=== PATIENT | female | born 1995 | race Caucasian/White ===

== ENCOUNTER 2018-01-16 20:58 | Emergency (ER) | payer SELFPAY ==
[2018-01-16 21:04] VITALS: BP 123/78; PULSE 85; RESP 16; TEMP 36.8; O2SAT 99
--- NOTE | 2018-01-16 21:24 | DI.RAD_ITS ---
SYMPTOMS/DIAGNOSIS: CHEST PAIN PA AND LATERAL CHEST: Comparison is made with December,. The cardiac and mediastinal contours have a normal appearance. The lungs are well inflated and clear. No infiltrate , effusion or pneumothorax is seen. IMPRESSION: Negative chest x-ray.
--- NOTE | 2018-01-16 21:29 | W.ED.GENAD ---
Discharge Plan Disposition Patient Disposition: HOME Condition: Fair Discharge Details Chief Complaint: Chest/Rib Clinical Impression: Chest pain, Chest wall pain Primary Care Provider: Tiffany Peña ED Provider: Elda Reed Home Meds and New Rx's Prescriptions: New ibuprofen 600 mg tablet 600 mg PO QID PRN (Reason: pain) Qty: 20 RF: 0 Continue desogestrel-ethinyl estradiol 1 EACH tablet 1 tab PO DAILY Qty: 28 RF: 2 Discharge Instructions Instructions: Chest Pain (ED), Chest Wall Pain (ED) Additional Instructions: Encourage hydration. Tylenol and/or Ibuprofen as needed for discomfort. Encourage deep breathing. Rest area, ice or heat to help with discomfort. If you develop fevers/chills, increased pain, shortness of breath, difficulty breathing or other new/worsening symptoms please seek care urgently once again. economic development coordinator will contact you with primary care provider. however, if you do not hear form them in the next [address] Watters's office to schedule follow up. Referrals: Tiffany Peña [Primary Care Provider] - Medical Decision Making Patient is a 22-year-old female, accompanied by her sister, with chief complaint of left superior chest wall discomfort. She reports that chest pain began yesterday. States she was changing her clothes and the pain initially began. States that time the pain is more centrally located in her chest. However, throughout the day the pain has migrated superiorly. States the pain is been intermittent it does not seem to be exacerbated by any particular movement or activity. However, on exam she does endorse increased pain with inspiration. Pain was elicited with AP compression of the chest. No recent travel. Patient is on control. Patient did describe how she takes her control and says that she takes that intermittently and not as directed. I did review with her the appropriate way in which to do this. Patient is a non-smoker. No lower extremity edema, no calf tenderness. Endorses shortness of breath when pain is present. Denies any recent trauma. Does state that she is been playing with her young nephew has been horsing around Patient's vital signs are within normal limits. No hypoxia or tachycardia. Considered cardiac causes, versus pulmonary or musculoskeletal. Patient is on estrogen containing OCP. History and symtpoms, as well as current vital signs do not suggest PE. As pain is not exertional and seems quite superior along the anterior chest wall, I feel this is less likely to be cardiac. Physical exam significant for chest wall pain with AP chest wall compression. Lungs are clear in all ferguson, no murmurs, rubs, gallops. No edema in LE, negative Homans. EKG reviewed by Dr. Mclean. NSR with rate of 84. Short [place], no delta waves. He advised no acute findings, no findings to suggest ischemic changes. Chest XR reivewed by radiologist. Lungs are unremarkable, no consolidation. Pleaural space is unremarkable, no evidence of pneumothorax. Heart size within normal limits. No evidence of acute fracture. Overall impression: no acute findings. Laboratory evaluation without significant abnormality. D-dimer WNL as is troponin. As the discomfort began yesterday, I do not feel that repeat troponin is needed at this time. Advised that this discomfort is likely associated with musculoskeletal pain. We discussed treatment, she will be given Ibuprofen and Tylenol as well as Lidoderm patch. She was given strict return precautions. She lives locally and is able to return with new/worsening symptoms. She reports she does not have a PCP, will ask our rn transitional care to help facilitate follow up, she has seen . pediatrics historically. I did advise that if she does not hear from rn transitional care she could contact leader assembler. All of her questions and concerns were addressed, she is in agreement with this plan. HPI General Mode of arrival: ambulatory. Date/Time Provider Initiated Documentation: 01/16/18 21:02. Limitations to Documentation: no limitations. Information obtained by: patient and family. History of Present Illness 22 year old F presents to the emergency department with the chief complaint of chest pain, described as moderate, Quality is described as aching, and is localized to the chest. Patient reports no radiation. Patient started experiencing this day(s) (1) and it has been intermittent. No relieving factors improve symptom(s), No exacerbating factors reported . Patient notes chest pain and shortness of breath; denies cough, fever/chills, headaches, nausea/vomiting, rash and weakness. Patient did receive the following treatments prior to arrival, none Related Data Home Medications Medication Instructions Recorded Confirmed desogestrel-ethinyl estradiol 1 tab PO DAILY #28 tab 12/24/15 01/16/18 ibuprofen 600 mg PO QID PRN #20 tab 01/16/18 Previous Rx's Medication Instructions Recorded ibuprofen 600 mg PO QID PRN #20 tab 01/16/18 Allergies Allergy/AdvReac Type Severity Reaction Status Date / Time No Known Allergies Allergy Unverified 04/19/17 08:14 General Stated Complaint: Chest/Rib JUDITH: 3 Review of Systems Constitutional Reports as per HPI, Denies chills, Denies fever(s), Denies headache(s), Denies lethargy and Denies poor appetite Eyes Denies change in vision ENT Denies headache(s) Cardiovascular Reports as per HPI, Reports chest pain at rest, Denies chest pain with activity, Denies syncope, Denies rapid heart rate, Denies pedal edema, Denies edema, Denies irregular heart rhythm, Denies claudication, Denies leg edema, Denies lightheadedness, Denies radiating jaw, neck or arm pain, Denies palpitations, Reports dyspnea and Reports dyspnea on exertion Respiratory Denies cough, Reports pain on inspiration, Reports pain with cough, Reports dyspnea, Reports dyspnea on exertion, Denies stridor and Denies wheezing Gastrointestinal Reports as per HPI, Denies abdominal pain, Denies diarrhea, Denies nausea and Denies vomiting Musculoskeletal Reports as per HPI, Denies back pain and Denies radiating pain into limb Integumentary/Breasts Reports as per HPI and Denies rash Neurologic Denies syncope and Denies headache(s) Endocrine Denies palpitations Allergic/Immunologic Denies wheezing PFSH Headache Scoliosis Family History Other Diabetes Personal history of malignant neoplasm Heart disease Mental disorder Myocardial infarction Cerebrovascular accident Asthma Idiopathic scoliosis Mother Headache Mental disorder Asthma Father Mental disorder Idiopathic scoliosis Family History Other Diabetes Personal history of malignant neoplasm Heart disease Mental disorder Myocardial infarction Cerebrovascular accident Asthma Idiopathic scoliosis Mother Headache Mental disorder Asthma Father Mental disorder Idiopathic scoliosis Medical History Headache Scoliosis Social History Smoking/Tobacco Use Status: Never Social History Smoking/Tobacco Use Status: Never Exam Const General: cooperative, healthy appearing, comfortable, no acute distress and well developed Nutritional Appearance: average body habitus and well nourished Orientation: alert, awake and oriented x3 [facility] Head: normal to inspection Ears: hearing grossly normal bilaterally Mouth: moist mucous membranes Chest Chest: normal inspection of the chest, abnormal palpation of chest wall (patient has exquisit tenderness with AP chest wall pressure, no pain with lateral compression), no crepitus and No rash Resp Effort & Inspection: normal respiratory effort, able to speak in complete sentences and no respiratory distress Auscultation: clear to auscultation bilaterally, no rales, no rhonchi and no wheezes Cardio Rate: regular rate Rhythm: regular rhythm Heart Sounds: S1 normal and S2 normal GI Inspection: normal to inspection, no edema and non-distended Palpation: soft, no hepatosplenomegaly, not firm, no guarding, not rigid and nontender Auscultation: normal bowel sounds Back/Spine/Pelvis Back: no CVA tenderness Thoracic/Lumbar Spine: thoracic and lumbar spine normal to inspection Skin General skin exam: no rashes or lesions noted Trauma: no lacerations or abrasions Neuro General: alert, awake and oriented x3 Cognition: normal cognition Speech: speech normal Gait: normal gait Extrem General: normal to inspection, normal capillary refill, no pedal edema, no calf tenderness and normal gait Psych Appearance: grossly normal and well kempt Mental Status: mental status grossly normal Speech and Movement: speech and movement normal Course Vital Signs Temperature 36.8 C 01/16/18 21:04 Pulse 85 01/16/18 21:04 Respiratory Rate 16 01/16/18 21:04 Blood Pressure 123/78 01/16/18 21:04 Pulse Oximetry 99 01/16/18 21:04 Temperature 36.8 C 01/16/18 21:04 Temperature Source Skin 01/16/18 21:04 Pulse 85 01/16/18 21:04 Respiratory Rate 16 01/16/18 21:04 Respiratory Effort 01/16/18 21:15 Blood Pressure 123/78 01/16/18 21:04 Blood Pressure Position Sitting 01/16/18 21:04 Pulse Oximetry 99 01/16/18 21:04 Oxygen Delivery Method Room Air 01/16/18 21:04 Oxygen Flow Rate 0 01/16/18 21:04
[2018-01-16 21:50] LABS: Abs Immature Grans 0.01 k/cumm (0.0-0.09); Absolute Basophil Count 0.05 k/cumm (0.0-0.2); Absolute Eosinophil Count 0.08 k/cumm (0.0-0.7); Absolute Lymphocyte Count 2.68 k/cumm (1.2-3.4); Absolute Monocyte Count 0.67 k/cumm (0.11-0.7); Absolute Neutrophil Count 4.45 k/cumm (1.2-6.7); Basophils % 0.6; HCT 41.3 % (36.0-46.0); HGB 13.6 g/dL (12.0-15.5); Immature Grans % 0.1; Lymphocytes % 33.8; Mean Corp. HGB Concentration 32.9 g/dL (32.0-36.0); Mean Corpuscular Hemoglobin 29.6 pg (27.0-33.0); Mean Corpuscular Volume 89.8 fL (80-95); Mean Platelet Volume 9.7 fL (8.0-11.0); Monocytes % 8.4; Neutrophils % 56.1; Platelet Count 308 x1000/uL (130-400); RBC Distribution Width 12.4 % (11.7-14.6); White Blood Cell Count 7.94 k/cumm (4.4-10.8)
[2018-01-16 22:03] VITALS: RESP 18
[2018-01-16 22:04] LABS: PTT Activated 24.5 sec (21.0-31.4); Prothrombin Time 10.2 sec (9.3-10.8)
[2018-01-16 22:07] LABS: ALT 29 U/L (12-78); AST 17 U/L (15-37); Albumin 4.4 g/dL (3.4-5.0); Alkaline Phosphatase 49 U/L (46-116); Anion Gap 10.4 mmol/L (3-11); BUN 9 mg/dL (7-18); CO2 26.6 mmol/L (21.0-32.0); CREATININE 0.83 mg/dL (0.55-1.02); Calcium 8.9 mg/dL (8.5-10.1); Chloride 102 mmol/L (98-107); Glucose 90 mg/dL (70-100); Magnesium 2.1 mg/dL (1.8-2.4); Potassium 3.4 mmol/L (3.5-5.1); Sodium 139 mmol/L (136-145)
[2018-01-16 22:14] LABS: Troponin I < 0.02 ng/mL (0.00-0.06)
--- NOTE | 2018-01-16 22:15 | DI.VRAD_ITS ---
EXAM: XR Chest, 2 Views EXAM DATE/TIME: 01/16/2018 9:59 PM CLINICAL HISTORY: 22 years old, female; Signs and symptoms; Other: Chest pain TECHNIQUE: XR of the chest, 2 views. COMPARISON: CR CHEST 2 VIEWS PA,LAT 12/14/2013 12:24 AM FINDINGS: Lungs: Unremarkable. No consolidation. Pleural space: Unremarkable. No evidence of pneumothorax. Heart/Mediastinum: Unremarkable. Heart size within normal limits for technique. Bones/joints: Unremarkable. No evidence of acute fracture. IMPRESSION: No acute findings. Dictated and Authenticated by: Scott Orlando MD. Ordering:BABATUNDE GUEVARA MD
[2018-01-16 22:20] LABS: D-Dimer 116 ng/mlFEU (<500)
[2018-01-16] MEDS: Ibuprofen 600 MG TAB PO (23:14)
[2018-01-16] MEDS: Acetaminophen 500 MG TAB 1000 MG PO (23:15)
[2018-01-16] MEDS: Lidocaine 5% Patch 1 PATCH TP (23:17)
--- NOTE | 2018-01-16 23:17 | ED.GENADUL_ITS ---
Discharge Plan Disposition Patient Disposition: HOME Condition: Fair Discharge Details Chief Complaint: Chest/Rib Clinical Impression: Chest pain, Chest wall pain Primary Care Provider: Tiffany Peña ED Provider: Elda Reed Home Meds and New Rx's Prescriptions: New ibuprofen 600 mg tablet 600 mg PO QID PRN (Reason: pain) Qty: 20 RF: 0 Continue desogestrel-ethinyl estradiol 1 EACH tablet 1 tab PO DAILY Qty: 28 RF: 2 Discharge Instructions Instructions: Chest Pain (ED), Chest Wall Pain (ED) Additional Instructions: Encourage hydration. Tylenol and/or Ibuprofen as needed for discomfort. Encourage deep breathing. Rest area, ice or heat to help with discomfort. If you develop fevers/chills, increased pain, shortness of breath, difficulty breathing or other new/worsening symptoms please seek care urgently once again. student outreach coordinator will contact you with primary care provider. however, if you do not hear form them in the next [address] Watters's office to schedule follow up. Referrals: Tiffany Peña [Primary Care Provider] - Medical Decision Making Patient is a 22-year-old female, accompanied by her sister, with chief complaint of left superior chest wall discomfort. She reports that chest pain began yesterday. States she was changing her clothes and the pain initially began. States that time the pain is more centrally located in her chest. However, throughout the day the pain has migrated superiorly. States the pain is been intermittent it does not seem to be exacerbated by any particular movement or activity. However, on exam she does endorse increased pain with inspiration. Pain was elicited with AP compression of the chest. No recent travel. Patient is on control. Patient did describe how she takes her control and says that she takes that intermittently and not as directed. I did review with her the appropriate way in which to do this. Patient is a non -smoker. No lower extremity edema, no calf tenderness. Endorses shortness of breath when pain is present. Denies any recent trauma. Does state that she is been playing with her young nephew has been horsing around Patient's vital signs are within normal limits. No hypoxia or tachycardia. Considered cardiac causes, versus pulmonary or musculoskeletal. Patient is on estrogen containing OCP. History and symtpoms, as well as current vital signs do not suggest PE. As pain is not exertional and seems quite superior along the anterior chest wall, I feel this is less likely to be cardiac. Physical exam significant for chest wall pain with AP chest wall compression. Lungs are clear in all ferguson, no murmurs, rubs, gallops. No edema in LE, negative Homans. EKG reviewed by Dr. Mclean. NSR with rate of 84. Short [place], no delta waves. He advised no acute findings, no findings to suggest ischemic changes. Chest XR reivewed by radiologist. Lungs are unremarkable, no consolidation. Pleaural space is unremarkable, no evidence of pneumothorax. Heart size within normal limits. No evidence of acute fracture. Overall impression: no acute findings. Laboratory evaluation without significant abnormality. D-dimer WNL as is troponin. As the discomfort began yesterday, I do not feel that repeat troponin is needed at this time. Advised that this discomfort is likely associated with musculoskeletal pain. We discussed treatment, she will be given Ibuprofen and Tylenol as well as Lidoderm patch. She was given strict return precautions. She lives locally and is able to return with new/worsening symptoms. She reports she does not have a PCP, will ask our daycare worker to help facilitate follow up, she has seen . pediatrics historically. I did advise that if she does not hear from daycare worker she could contact household appliances service technician. All of her questions and concerns were addressed, she is in agreement with this plan. HPI General Mode of arrival: ambulatory . Date/Time Provider Initiated Documentation: 01/16/18 21:02 . Limitations to Documentation: no limitations . Information obtained by: patient and family . History of Present Illness 22 year old F presents to the emergency department with the chief complaint of chest pain, described as moderate, Quality is described as aching, and is localized to the chest. Patient reports no radiation. Patient started experiencing this day(s) (1) and it has been intermittent. No relieving factors improve symptom(s), No exacerbating factors reported . Patient notes chest pain and shortness of breath; denies cough, fever/chills, headaches , nausea/vomiting, rash and weakness. Patient did receive the following treatments prior to arrival, none Related Data Home Medications Medication Instructions Recorded Confirmed desogestrel-ethinyl estradiol 1 tab PO DAILY #28 tab 12/24/15 01/16/18 ibuprofen 600 mg PO QID PRN #20 tab 01/16/18 Previous Rx's Medication Instructions Recorded ibuprofen 600 mg PO QID PRN #20 tab 01/16/18 Allergies Allergy/AdvReac Type Severity Reaction Status Date / Time No Known Allergies Allergy Unverified 04/19/17 08:14 General Stated Complaint: Chest/Rib JUDITH: 3 Review of Systems Constitutional Reports as per HPI, Denies chills, Denies fever(s), Denies headache(s), Denies lethargy and Denies poor appetite Eyes Denies change in vision ENT Denies headache(s) Cardiovascular Reports as per HPI, Reports chest pain at rest, Denies chest pain with activity , Denies syncope, Denies rapid heart rate, Denies pedal edema, Denies edema, Denies irregular heart rhythm, Denies claudication, Denies leg edema, Denies lightheadedness, Denies radiating jaw, neck or arm pain, Denies palpitations, Reports dyspnea and Reports dyspnea on exertion Respiratory Denies cough, Reports pain on inspiration, Reports pain with cough, Reports dyspnea, Reports dyspnea on exertion, Denies stridor and Denies wheezing Gastrointestinal Reports as per HPI, Denies abdominal pain, Denies diarrhea, Denies nausea and Denies vomiting Musculoskeletal Reports as per HPI, Denies back pain and Denies radiating pain into limb Integumentary/Breasts Reports as per HPI and Denies rash Neurologic Denies syncope and Denies headache(s) Endocrine Denies palpitations Allergic/Immunologic Denies wheezing PFSH Headache Scoliosis Family History Other Diabetes Personal history of malignant neoplasm Heart disease Mental disorder Myocardial infarction Cerebrovascular accident Asthma Idiopathic scoliosis Mother Headache Mental disorder Asthma Father Mental disorder Idiopathic scoliosis Family History Other Diabetes Personal history of malignant neoplasm Heart disease Mental disorder Myocardial infarction Cerebrovascular accident Asthma Idiopathic scoliosis Mother Headache Mental disorder Asthma Father Mental disorder Idiopathic scoliosis Medical History Headache Scoliosis Social History Smoking/Tobacco Use Status: Never Social History Smoking/Tobacco Use Status: Never Exam Const General: cooperative, healthy appearing, comfortable, no acute distress and well developed Nutritional Appearance: average body habitus and well nourished Orientation: alert, awake and oriented x3 [facility] Head: normal to inspection Ears: hearing grossly normal bilaterally Mouth: moist mucous membranes Chest Chest: normal inspection of the chest, abnormal palpation of chest wall ( patient has exquisit tenderness with AP chest wall pressure, no pain with lateral compression), no crepitus and No rash Resp Effort & Inspection: normal respiratory effort, able to speak in complete sentences and no respiratory distress Auscultation: clear to auscultation bilaterally, no rales, no rhonchi and no wheezes Cardio Rate: regular rate Rhythm: regular rhythm Heart Sounds: S1 normal and S2 normal GI Inspection: normal to inspection, no edema and non-distended Palpation: soft, no hepatosplenomegaly, not firm, no guarding, not rigid and nontender Auscultation: normal bowel sounds Back/Spine/Pelvis Back: no CVA tenderness Thoracic/Lumbar Spine: thoracic and lumbar spine normal to inspection Skin General skin exam: no rashes or lesions noted Trauma: no lacerations or abrasions Neuro General: alert, awake and oriented x3 Cognition: normal cognition Speech: speech normal Gait: normal gait Extrem General: normal to inspection, normal capillary refill, no pedal edema, no calf tenderness and normal gait Psych Appearance: grossly normal and well kempt Mental Status: mental status grossly normal Speech and Movement: speech and movement normal Course Vital Signs Temperature 36.8 C 01/16/18 21:04 Pulse 85 01/16/18 21:04 Respiratory Rate 16 01/16/18 21:04 Blood Pressure 123/78 01/16/18 21:04 Pulse Oximetry 99 01/16/18 21:04 Temperature 36.8 C 01/16/18 21:04 Temperature Source Skin 01/16/18 21:04 Pulse 85 01/16/18 21:04 Respiratory Rate 16 01/16/18 21:04 Respiratory Effort 01/16/18 21:15 Blood Pressure 123/78 01/16/18 21:04 Blood Pressure Position Sitting 01/16/18 21:04 Pulse Oximetry 99 01/16/18 21:04 Oxygen Delivery Method Room Air 01/16/18 21:04 Oxygen Flow Rate 0 01/16/18 21:04
== END 2018-01-16 23:26 | disposition home or self-care (01) ==
LOC: ER 23:29
PROVIDERS: Emergency Provider Physician Assistant; PCP Nurse Practitioner Pediatrics
DX: R07.89 Other chest pain (principal); R06.02 Shortness of breath
CPT/HCPCS: 36415; 80053; 93005; 99285; 71046; 83735; 84484; 85025; 85379; 85610; 85730; 93010

== ENCOUNTER 2018-05-22 19:07 | Emergency (ER) | payer OTHER, SELFPAY ==
[2018-05-22 19:11] VITALS: BP 123/75; PULSE 72; RESP 16; TEMP 36.8; O2SAT 92
[2018-05-22 19:31] LABS: Bilirubin Negative (Negative); Blood Moderate (Negative); Clarity Cloudy; Glucose Negative (Negative); Ketones Negative (Negative); Leukocyte Esterase Negative (Negative); Nitrite Negative (Negative); Urobilinogen 0.2 EU/dL (Up TO 0.2); pH 8.5 (5-8)
[2018-05-22 19:42] LABS: Bacteria Few HPF (Negative); Crystals Many Amorphous HPF (Negative); Epithelial Cells Rare HPF (Negative); Mucus Negative (Negative); Other Cells Negative (Negative); WBC Negative HPF (0-5)
[2018-05-22 19:43] LABS: C & S Indicated? No; Casts Negative LPF (Negative)
--- NOTE | 2018-05-22 19:47 | ED.GENADUL_ITS ---
Discharge Plan Disposition Patient Disposition: HOME Condition: Stable Discharge Details Chief Complaint: FlankPain Clinical Impression: Abnormal vaginal bleeding, UTI (urinary tract infection) Primary Care Provider: None,None ED Provider: Jatinder Mahmood Home Meds and New Rx's Prescriptions: New ciprofloxacin HCl 500 mg tablet 500 mg PO BID Qty: 14 RF: 0 No Action ibuprofen 600 mg tablet 600 mg PO QID PRN (Reason: pain) Qty: 20 RF: 0 Discharge Instructions Instructions: Urinary Tract Infection in Women (ED) Additional Instructions: you should be contacted with an appointment with women's wellness if you develop severe pain, difficulty breathing or chest pain/presure or severe weakness return to the emergency department Medical Decision Making 23 yo female who denies any hx of chronic medical problems comes in with chief complaint of left lower back pain for a few days and urinary urgency. Denies fevers,vomit, has suprapubic pain on exam without guarding or pain elsewhere. Has no cva tenderness. She did have vaginal bleeding last week and has lessened throughout the week, denies std's in the past. Declined pelvis here, negative hcg so doubt ectopic and has no severe pelvic pain so doubt torsion, do not feel acute pelvic imaging indicated and pain is not consistent with renal colic so doubt this at this time. Given the low back pain and urinary symptoms suspect uti, will check ua She remains stable and appears well inno ddistress. UA with hematuria and few bacteria, culture sent, will start abx for this. Gc/chlamydia sent as well, will refer to women's wellness for her vaginal bleeding, return precautions given Differential Diagnosis ectopic, dysmenorrhea, uti, cystitis, kidney stone HPI General Mode of arrival: ambulatory . Date/Time Provider Initiated Documentation: 05/22/18 19:16 . Limitations to Documentation: no limitations . Information obtained by: patient . History of Present Illness 23 year old F presents to the emergency department with the chief complaint of urinary urgency, described as moderate, with intensity rated at 4. Quality is described as aching, Patient started experiencing this day(s) (3) and it has been constant. No relieving factors improve symptom(s), No exacerbating factors reported . Patient did receive the following treatments prior to arrival, none Related Data Home Medications Medication Instructions Recorded Confirmed ibuprofen 600 mg PO QID PRN #20 tab 01/16/18 05/22/18 ciprofloxacin HCl 500 mg PO BID #14 tab 05/22/18 Previous Rx's Medication Instructions Recorded ibuprofen 600 mg PO QID PRN #20 tab 01/16/18 ciprofloxacin HCl 500 mg PO BID #14 tab 05/22/18 Allergies Allergy/AdvReac Type Severity Reaction Status Date / Time No Known Allergies Allergy Unverified 05/22/18 19:15 General Stated Complaint: FlankPain JUDITH: 3 Review of Systems Review of Systems All systems reviewed & are unremarkable except as noted in HPI and below Constitutional Denies chills, Denies fever(s) and Denies weakness ENT Denies change in voice Cardiovascular Denies chest pain and Denies dyspnea Respiratory Denies cough and Denies dyspnea Gastrointestinal Denies abdominal pain, Denies nausea and Denies vomiting Neurologic Denies weakness PFSH Medical History Headache Scoliosis Family History Other Diabetes Personal history of malignant neoplasm Heart disease Mental disorder Myocardial infarction Stroke Asthma Idiopathic scoliosis Mother Headache Mental disorder Asthma Father Mental disorder Idiopathic scoliosis Social History Smoking/Tobacco Use Status: Never Alcohol Intake: never Drug use: Never Do you feel safe in your relationship?: Yes Additional Social history: unable to assess Exam Const General: no acute distress Orientation: alert HENMT Head: normal to inspection Ears: external ears normal General nose exam: external nose normal Mouth: moist mucous membranes Eyes General: appearance normal, both eyes and all related structures Neck Neck: normal visual inspection Resp Effort & Inspection: normal respiratory effort and able to speak in complete sentences Cardio Rate: regular rate General: No CVA tenderness Skin General skin exam: no rashes or lesions noted Neuro General: alert and oriented x3 Extrem General: normal to inspection Psych Mental Status: mental status grossly normal Course Vital Signs Temperature 36.8 C 05/22/18 19:11 Pulse 72 05/22/18 19:11 Respiratory Rate 16 05/22/18 19:11 Blood Pressure 123/75 05/22/18 19:11 Pulse Oximetry 92 L 05/22/18 19:11 Temperature 36.8 C 05/22/18 19:11 Temperature Source Temporal Artery Scan 05/22/18 19:11 Pulse 72 05/22/18 19:11 Respiratory Rate 16 05/22/18 19:11 Respiratory Effort 05/22/18 19:11 Blood Pressure 123/75 05/22/18 19:11 Blood Pressure Position Sitting 05/22/18 19:11 Pulse Oximetry 92 L 05/22/18 19:11 Oxygen Delivery Method Room Air 05/22/18 19:11 Oxygen Flow Rate 0 05/22/18 19:11 Pain Level 4 05/22/18 19:16 Lab/Test Results Lab/Test Results: POC- Test(urine) Negative
[2018-05-22] MEDS: Ciprofloxacin 500 MG TAB PO (20:17)
--- NOTE | 2018-05-23 10:19 | PDOC.ERCMPRO ---
Care Management Progress Note 05/23-Dr. Mahmood requested assistance with a [facility] f/u in one week for abnormal menstrual cycle. Referral faxed to [facility] this am.
[2018-05-24 14:30] LABS: Chlamydia Result Negative; GC Result Negative; Specimen Description URINE
== END 2018-05-22 20:25 | disposition home or self-care (01) ==
PROVIDERS: Emergency Provider Emergency Medicine
DX: N93.9 Abnormal uterine and vaginal bleeding, unspecified (principal); N39.0 Urinary tract infection, site not specified
CPT/HCPCS: 36415; 81025; 87491; 87591; 99283; 81003; 81015

== ENCOUNTER 2018-10-25 14:44 | Outpatient (REF) | payer OTHER, SELFPAY ==
--- NOTE | 2018-10-25 14:00 | PAPFT_PTH ---
PATIENT: Mallorie Pérez LOC: [facility] U#:[id number] AGE/SX: 23/F ROOM: RE10/25/[address]: LUCILLE Gregg : 1995 BED: DIS: 10/25/2018 SPEC #: [id number] RECD: 10/25/18 17:50 STATUS: BARON RELianet #: [id number] GEOVANNY: 10/25/18 14:[address]: Annie Martinez DEPT: [facility] Cytology RECD BY: Jane Ibarra ENTERED: 10/25/18 17:50 SP TYPE: PAPFT ELY DR: None Tissues: 1 - CX/ENDOCX FOR PAP SMEARS Procedures: PAP THIN PREP/UVM Screening Comments: [id number]
== END 2018-10-25 15:04 ==
LOC: LBN 14:44
PROVIDERS: PCP Physician Assistant; Visit Provider Nurse Practitioner Family
DX: Z12.4 Encounter for screening for malignant neoplasm of cervix (principal)
CPT/HCPCS: 88142

== ENCOUNTER 2020-12-30 17:10 | Emergency (ER) | payer OTHER, SELFPAY ==
[2020-12-30 17:21] VITALS: BP 124/61; PULSE 78; RESP 16; TEMP 37.1; O2SAT 99
--- NOTE | 2020-12-30 17:31 | ED.GENADUL_ITS ---
Discharge Plan Disposition Patient Disposition: HOME Condition: Stable Discharge Details Clinical Impression: URI (upper respiratory infection) Primary Care Provider: Talat Guthrie ED Provider: Elda Reed Home Meds and New Rx's Prescriptions: Continued ibuprofen 600 mg tablet 600 mg PO QID PRN (Reason: pain) Qty: 20 RF: 0 escitalopram oxalate 20 mg tablet RF: 0 Discharge Instructions Instructions: Upper Respiratory Infection (ED) Additional Instructions: Your vital signs are stable here today. Your lungs are clear. However, with your recent travel, I am concerned that you may have contracted COVID-19. I encourage you to get vaccinated. Please quarantine until you have negative test result. Please encourage hydration. And use Tylenol and ibuprofen as needed for discomfort. Please follow-up with your primary care provider in the next 2 weeks for reevaluation. If you develop shortness of breath, difficulty breathing, inability to hydrate or other new/worsening symptoms seek care urgently once again. Referrals: Talat Guthrie [Primary Care Provider] - Discharge Data Discharge Date/Time-TO BE ENTERED AT DEPARTURE: 12/30/20 17:40 Medical Decision Making Patient is a pleasant 45-year-old female presenting today with chief complaint of upper respiratory infection. She reports that last night she began having sore throat. This has some congestion and cough. Denies any chest pain or shortness of breath. States that she has been able to stay hydrated. No diarrhea. No fevers or chills. Patient has not been vaccinated against COVID-19. Was traveling in [place] last week. She is concerned that she may have contract ed the virus. On exam, patient appears nontoxic. Normal HEENT exam. Lungs are clear. Vital signs are stable. History exam consistent with viral illness. I do not see any evidence to suggest pneumonia. Patient not hypoxic. No evidence to suggest PE, patient is PERC negative. I am concerned that she may have contracted COVID-19. I did encourage vaccination. Will send out COVID-19 testing. Return precautions were discussed. I encouraged that she follow-up with primary care in 2 weeks for reevaluation. All of her questions and concerns were addressed and she is agreement this plan. HPI General Mode of arrival: ambulatory . Date/Time Provider Initiated Documentation: 12/30/20 17:21 . Limitations to Documentation: no limitations . Information obtained by: patient and RN notes reviewed . History of Present Illness 25 year old F presents to the emergency department with the chief complaint of Nasal congestion, sore throat, cough, bilateral ear pain, described as moderate, with intensity rated at 4. Quality is described as aching, and is localized to the face (both ears). Patient reports no radiation. Patient started experiencing this day(s) (1) and it has been constant. No relieving factors improve symptom(s), No exacerbating factors reported . Patient notes no other symptoms.. Patient did receive the following treatments prior to arrival, none Related Data Home Medications Medication Instructions Recorded Confirmed ibuprofen 600 mg PO QID PRN #20 tab 01/16/18 05/22/18 escitalopram oxalate mg 12/30/20 12/30/20 Previous Rx's Medication Instructions Recorded ibuprofen 600 mg PO QID PRN #20 tab 01/16/18 Allergies Allergy/AdvReac Type Severity Reaction Status Date / Time No Known Allergies Allergy Verified 12/30/20 17:27 General Stated Complaint: GenMedical JUDITH: 3 Review of Systems Constitutional Constitutional: Reports as per HPI and Denies headache(s) Eyes Eyes: Reports as per HPI and Denies irritation ENT Ears, Nose, Mouth, and Throat: Reports as per HPI and Denies headache(s) Cardiovascular Cardiovascular: Reports as per HPI, Denies chest pain and Denies dyspnea Respiratory Respiratory: Reports as per HPI and Denies dyspnea Gastrointestinal Gastrointestinal: Reports as per HPI, Denies abdominal pain, Denies change in bowel habits, Denies nausea and Denies vomiting Integumentary/Breasts Skin/Breast: Reports as per HPI and Denies rash Neurologic Neurologic: Reports as per HPI and Denies headache(s) [facility] Active Problem List (Updated 12/30/20 @ 17:32 by PEG Clarke) URI (upper respiratory infection) (Acute) Medical History (Updated 12/30/20 @ 17:32 by PEG Clakre) Headache Scoliosis Family History Other Diabetes maternal Personal history of malignant neoplasm PGM-breast, maternal aunt with brain tumor Heart disease maternal Mental disorder PGM, 3 siblings Myocardial infarction Stroke maternal Asthma 3 siblings Idiopathic scoliosis PGF, brother Mother Headache Mental disorder anxiety/depression Asthma Father Mental disorder depresssion Idiopathic scoliosis Social History Smoking/Tobacco Use Status: Never Smoking risk assessment performed?: Yes Alcohol Intake: never Drug use: Never Do you feel safe in your relationship?: Yes Additional Social history: unable to assess Female Reproductive History Menstrual control method: none History History 0 Para Hx # Term Pregnancies Multiple births Hx # Pregnancies Ectopic pregnancies AB induced Hx Number of Living Children AB spontaneous Exam Const General: cooperative, healthy appearing, comfortable, no acute distress, well developed and well groomed Nutritional Appearance: average body habitus and well nourished Orientation: alert and awake [facility] Head: normal to inspection, normocephalic and atraumatic Ears: hearing grossly normal bilaterally, external ears normal and TM's normal bilaterally General nose exam: external nose normal and nares normal Face and sinus: normal facial exam, sinuses nontender and face symmetric Mouth: oral mucosae normal, lip normal, tongue normal, oropharynx normal and moist mucous membranes Teeth and gingiva: dentition normal Throat: posterior oropharynx normal, tonsils normal and uvula midline Eyes General: appearance normal, both eyes and all related structures Neck Neck: normal visual inspection, full ROM and no lymphadenopathy Resp Effort & Inspection: normal respiratory effort, able to speak in complete sentences and no respiratory distress Auscultation: clear to auscultation bilaterally, no rales, no rhonchi and no wheezes Cardio Rate: regular rate Rhythm: regular rhythm Heart Sounds: S1 normal and S2 normal Skin General skin exam: no rashes or lesions noted Neuro General: patient alert and patient awake Cognition: normal cognition Speech: speech normal Gait: normal gait Psych Appearance: grossly normal and well kempt Mental Status: mental status grossly normal Speech and Movement: speech and movement normal Course Vital Signs Vital signs: Vital Signs Temperature 37.1 C 12/30/20 17:21 Pulse 78 12/30/20 17:21 Respiratory Rate 16 12/30/20 17:21 Blood Pressure 124/61 12/30/20 17:21 Pulse Oximetry 99 12/30/20 17:21 Temperature 37.1 C 12/30/20 17:21 Temperature Source Skin 12/30/20 17:21 Pulse 78 12/30/20 17:21 Respiratory Rate 16 12/30/20 17:21 Respiratory Effort 12/30/20 17:25 Blood Pressure 124/61 12/30/20 17:21 Blood Pressure Position Sitting 12/30/20 17:21 Pulse Oximetry 99 12/30/20 17:21 Oxygen Delivery Method Room Air 12/30/20 17:21 Oxygen Flow Rate 0 12/30/20 17:21 Pain Level 4 12/30/20 17:21
[2020-12-30 17:39] VITALS: RESP 16
[2021-01-01 15:39] LABS: COVID-19 RT-PCR UVMMC Result Negative (Negative)
--- NOTE | 2021-01-03 08:44 | NUR.NOTE ---
Nursing Note: Negative COVID result given to pt over the phone at 0844 after identity confirmed.
== END 2020-12-30 17:40 | disposition home or self-care (01) ==
PROVIDERS: Emergency Provider Physician Assistant; PCP Physician Assistant
DX: J06.9 Acute upper respiratory infection, unspecified (principal)
CPT/HCPCS: 99281; U0003; 99282

== ENCOUNTER 2022-02-21 15:45 | Outpatient (REF) | payer BC, SELFPAY | END 2022-02-21 15:46 | disposition home or self-care (01) | LOC: LBN 15:45 | PROVIDERS: PCP Physician Assistant; Visit Provider Nurse Practitioner Family | DX: J02.9 Acute pharyngitis, unspecified (principal) | CPT/HCPCS: 87081 ==

== ENCOUNTER 2022-02-23 20:09 | Emergency (ER) | payer BC, SELFPAY ==
[2022-02-23] VITALS (12 sets, daily range): BP systolic 110–122; BP diastolic 56–70; PULSE 52–70; RESP 16; TEMP 36.2–37; O2SAT 98–100
--- NOTE | 2022-02-23 20:41 | ED.GENADUL_ITS ---
Discharge Plan Disposition Patient Disposition: Home Condition: Improving Discharge Details Chief Complaint: Headache Clinical Impression: Headache Primary Care Provider: Talat Guthrie ED Provider: Pato Donahue Home Meds and New Rx's Prescriptions: No Action ibuprofen 600 mg tablet 600 mg PO QID PRN (Reason: pain) Qty: 20 0RF escitalopram oxalate 20 mg tablet Label Comments: TAKE ONE TABLET BY MOUTH EVERY DAY Discharge Instructions Instructions: Migraine Headache (ED), General Headache (ED) Additional Instructions: Please follow-up with neurology for further evaluation. Please return to the emergency department for any worsening symptoms. Medical Decision Making 26-year-old female history of recurrent headaches presents with gradual onset occipital headache associate with photophobia and nausea and vomiting today, afebrile nontoxic but uncomfortable appearing nonmeningeal full range of motion of neck, neurologically intact cranial nerves intact 5 out of 5 strength upper and lower extremities normotensive nontachycardic. Likely migraine headache versus tension headache versus less likely cluster headache given location of headache lower suspicion for intracranial mass edema or bleed, no evidence of meningitis at this time. Trial of fluids dexamethasone Zofran and sumatriptan. Basic labs. Disposition pending response to medications. 22: 04 patient feeling much better after medications. Nausea has resolved no vomiting in department. Neurologically intact. Will provide referral to neurology team for further evaluation of headache, likely diagnosis of migraine. HPI General Date/Time Provider Initiated Documentation: 02/23/22 20:19 . HPI Narrative: 26-year-old female history of recurrent headaches presents with occipital headache gradual in onset over the past several days associate with photophobia nausea and a couple episodes of vomiting today. Has taken Tylenol at home without effect. Related Data Home Medications Medication Instructions Recorded Confirmed ibuprofen 600 mg tablet 600 mg PO QID PRN pain #20 tabs 01/16/18 02/23/22 escitalopram oxalate 20 mg tablet mg 12/30/20 12/30/20 Previous Rx's Medication Instructions Recorded ibuprofen 600 mg tablet 600 mg PO QID PRN pain #20 tabs 01/16/18 Allergies Allergy/AdvReac Type Severity Reaction Status Date / Time No Known Allergies Allergy Verified 12/30/20 17:27 General Stated Complaint: Headache JUDITH: 3 Review of Systems Narrative: Review of Systems Constitutional: negative Eyes: negative ENT: negative Cardiovascular: negative Respiratory: negative Gastrointestinal: Nausea vomiting : negative Musculoskeletal: negative Skin: negative Neurologic: Headache Psych: negative PFSH All Active Problems (Updated 02/23/22 @ 22:06 by Pato Donahue MD) URI (upper respiratory infection) (Acute) Headache (Acute) Medical History (Updated 02/23/22 @ 22:06 by Pato Donahue MD) Headache Scoliosis Family History Other Diabetes maternal Personal history of malignant neoplasm PGM-breast, maternal aunt with brain tumor Heart disease maternal Mental disorder PGM, 3 siblings Myocardial infarction Stroke maternal Asthma 3 siblings Idiopathic scoliosis PGF, brother Mother Headache Mental disorder anxiety/depression Asthma Father Mental disorder depresssion Idiopathic scoliosis Social History Smoking/Tobacco Use Status: Never Smoking risk assessment performed?: Yes Alcohol Intake: never Drug use: Never Do you feel safe at home: Yes Do you feel safe in your relationship?: Yes Additional Social history: unable to assess Female Reproductive History Menstrual control method: none History History 0 Para Hx # Term Pregnancies Multiple births Hx # Pregnancies Ectopic pregnancies AB induced Hx Number of Living Children AB spontaneous Exam Narrative Exam Narrative: Physical Examination General: alert, awake, cooperative, uncomfortable appearing HEENT: normocephalic, atraumatic; PERRL, EOM intact, conjunctiva normal; no nasal discharge; moist mucous membranes, oral and pharyngeal mucosa normal, tolerating secretions Neck: supple, trachea midline; full ROM, no meningeal Chest: normal to inspection Respiratory: normal respiratory effort, speaking in full sentences, clear to auscultation, no wheezing, rales or rhonchi Cardiac: regular rate, regular rhythm, S1S2 intact, no murmurs rubs or gallops GI: abdomen soft, non-tender, non-distended; no palpable mass or hepatosplenomegaly Skin: no lesions, rashes or trauma appreciated Neuro: AAOx3, normal speech, moving all extremities; cranial nerves II through XII intact, 5 out of 5 strength upper and lower extremities normal speech Psych: Appropriate mood and affect Course Vital Signs Vital signs: Vital Signs Temperature 36.2 C L 02/23/22 20:16 Pulse 70 02/23/22 20:16 Respiratory Rate 16 02/23/22 20:16 Blood Pressure 111/56 L 02/23/22 20:16 Pulse Oximetry 100 02/23/22 20:16 Temperature 36.2 C L 02/23/22 20:16 Pulse 70 02/23/22 20:16 Respiratory Rate 16 02/23/22 20:16 Respiratory Effort 02/23/22 20:21 Blood Pressure 111/56 L 02/23/22 20:16 Pulse Oximetry 100 02/23/22 20:16 Oxygen Delivery Method Room Air 02/23/22 20:16 Oxygen Flow Rate 0 02/23/22 20:16 Pain Level 10 02/23/22 20:21
[2022-02-23 20:50] LABS: HCT 37.4 % (36.0-46.0); HGB 12.1 g/dL (11.2-15.7); MCH 28.1 pg (27.0-33.0); MCHC 32.4 % (32.0-36.0); MCV 87 fL (80-95); MPV 10.1 fL (8.0-11.0); RDW 11.8 % (11.7-14.6); RDW-SD 37.9 fL; WBC 6.22 10^3/uL (4.4-10.8)
[2022-02-23] MEDS: Dexamethasone 10 MG/ML VIAL IVP (20:51)
[2022-02-23] MEDS: Ondansetron 4 MG/2 ML VIAL IVP (20:52)
[2022-02-23] MEDS: SUMAtriptan 6 MG/0.5 ML VIAL SC (20:53)
[2022-02-23] MEDS: Normal Saline 1,000 ML 1000 ML IV (20:59)
[2022-02-23 21:05] LABS: ALT 20 U/L (14-59); AST 21 U/L (15-37); Albumin 4.2 g/dL (3.4-5.0); Alkaline Phosphatase 60 U/L (46-116); Anion Gap 7.5 mmol/L (3-11); BUN 10 mg/dL (7-18); Bilirubin, Total 0.5 mg/dL (0.2-1.0); CO2 27.5 mmol/L (21.0-32.0); CREATININE 0.7 mg/dL (0.55-1.02); Calcium 8.9 mg/dL (8.5-10.1); Chloride 104 mmol/L (98-107); Estimated GFR 123.78 (mL/min/1.73m2); Glucose 103 mg/dL (74-106); Potassium 3.3 mmol/L (3.5-5.1); Sodium 139 mmol/L (136-145)
[2022-02-23 21:26] LABS: Absolute Basophil Count 0.06 10^3/uL (0.0-0.2); Absolute Lymphocyte Count 1.24 10^3/uL (1.2-3.4); Absolute Monocyte Count 0.19 10^3/uL (0.1-0.8); Absolute Neutrophil Count 4.73 10^3/uL (1.2-6.7); Atypical Lymphocytes % 2; Diff Comment Manual Differential; Platelet Count 330 10^3/uL (130-400); RBC Morphology Normal
[2022-02-23 21:47] LABS: Bilirubin Negative (Negative); Blood Negative (Negative); Clarity Sl Cloudy (Clear); Glucose Negative (Negative); Ketones Negative (Negative); Leukocyte Esterase Negative (Negative); Nitrite Negative (Negative); Specific Gravity 1.015 (1.005-1.025); Urobilinogen 0.2 EU/dL (Up TO 0.2); pH 7.5 (5-8)
== END 2022-02-23 22:19 | disposition home or self-care (01) ==
PROVIDERS: Emergency Provider Emergency Medicine; PCP Physician Assistant
DX: R51.9 Headache, unspecified (principal)
CPT/HCPCS: 80053; 81025; 96361; 96372; 96374; 96375; 99284; 81003; 85025; J1100; J2405

== ENCOUNTER 2023-02-05 21:29 | Emergency (ER) | payer BC, SELFPAY ==
--- NOTE | 2023-02-05 21:32 | ED.GENADUL_ITS ---
Discharge Plan Disposition Patient Disposition: Home Discharge Details Clinical Impression: Hyperemesis gravidarum Primary Care Provider: Unknown,Unknown ED Provider: Rosas Flannery Home Meds and New Rx's Prescriptions: New doxylamine-pyridoxine (vit B6) [Diclegis] 10-10 mg tablet,delayed release (DR/EC) 1 tab PO BID PRNQty: 10 0RF Rx Instructions: As needed for nausea Continued escitalopram oxalate 20 mg tablet Patient Comments: TAKE ONE TABLET BY MOUTH EVERY DAY Discontinued ibuprofen 600 mg tablet 600 mg PO QID PRN (Reason: pain) Qty: 20 0RF Discharge Instructions Additional Instructions: You were seen in the emergency department for your nausea and vomiting.Your blood work showed that you are staying well-hydrated. You were found to have influenza. Please quarantine at home for 5 days or until your symptoms are improved. Your potassium was mildly low for which you received repletion. As we discussed, if you cannot eat or drink as result of nausea or vomiting please return to the emergency department. Please also return if you develop any abdominal pain. Otherwise please follow-up with your [facility] team next week. A prescription for some nausea medicines has been sent to your pharmacy. HPI General Date/Time Provider Initiated Documentation: 02/05/23 21:31 . HPI Narrative: MDM This is a very well-appearing normothermic and not tachycardic nor hypertensive at approximately 14 weeks with nausea and vomiting concerning for the possibility of hyperemesis gravidarum. Will obtain a urinalysis to assess for ketonuria. Will initiate fluid hydration with D5 NS. Will obtain electrolytes to assess for any acute electrolyte abnormalities. No pain or proportion to suggest necrotizing soft tissue infection. Patient had COVID last week but has been swabbing negative subsequently at home. Given that she has not hypoxic nor having any trouble breathing will defer chest x-ray at this point in time. Patient not immunocompromise to suggest opportunistic infection. No recent travel to suggest atypical infection. She denies diarrhea but has a soft non tender abdomen so I am not concerned for intra-abdominal process. No fevers nor diarrhea to suggest diverticulitis. No vaginal bleeding to suggest ectopic and patient reports known intrauterine . No significant abdominal pain nor cocaine use to suggest placental abruption. No vaginal bleeding to suggest placental previa. Will reassess following labs fluids and treatment with ondansetron. Patient and I discussed risks and benefits of ondansetron. I advised that there had been some meta-analysis associating ondansetron with possible congenital cardiac abnormalities during the first trimester. Given the patient's gestational age I advised that the risks of ongoing dehydration outweighed the risks of ondansetron so we will treat with 1 dose of ondansetron in the emergency department. Concerning the patient's headache it was not sudden onset to suggest subarachnoid hemorrhage. No neck pain to suggest cervical arterial dissection. No generator exposure to suggest CO toxicity. Patient is not obese to suggest increased risk for idiopathic intracranial hemorrhage. No fevers to suggest meningitis. Not altered to suggest encephalitis. No visual changes and based on the patient's age I am not concerned for temporal arteritis. No chest pain or shortness of breath to suggest myocarditis given COVID infection last week. Reassuring heart rate 154 bpm. Given no past abdominal surgeries I am no concerned for SBO. Reassuring blood pressure and based on the patient's gestational age my suspicion is exceedingly low for preeclampsia. No right upper quadrant tenderness to suggest HELLP syndrome so I did not order LFTs. Will swab for influenza RSV and COVID. Patient was positive for strep last week but has no limitations in the range of motion in her neck to suggest retropharyngeal abscess. Uvula midline so I am not concerned for [employer]. I certainly possible that her prednisone could be causing her nausea and vomiting. 10:40 PM CBC lacks anemia thrombocytopenia and leukocytosis. Patient felt improved following fluids. 10:56 PM Basic metabolic panel showing very mild hypokalemia with a serum potassium of 3.1. Given potassium above 3 will defer ECG but will order oral potassium. Will ensure patient can pass a p.o. trial. 11:20 PM Patient felt improved in the emergency department. Her headache resolved. She has not been vomiting. 11:26 PM Urinalysis showing ketonuria but nitrite negative. Glucosuria likely secondary to D5 NS. Will initiate p.o. trial. Will discharge with several ondansetron tablets given all pharmacies are closed. Will send a prescription for Diclegis to the patient's pharmacy. Will give strict return indications including nausea or vomiting that does not stop any abdominal pain or any fevers. 11:51 AM Patient swab positive for the flu. Given her will defer oseltamavir as it is category C. Patient was able to tolerate some crackers and some sips of kaycee anca in 8 ounce of water. She kept on her potassium. Advise ED return for any worsening nausea vomiting did not stop or less than 1 episode of urination every 8 hours while awake. She understood her return indications and we will proceed with empiric trial of expectant outpatient management. Chronic conditions affecting the care of the patient: N/A History obtained from an outside historian: N/A External record review: No [facility] EMR records Medications: Ondansetron D5 NS Social determinants of health affecting disposition: N/A Management discussed with: N/A Treatment/interventions considered: N/A Response to therapies provided: Improved nausea resolved vomiting status post treatment HPI This is a G1, P0 27-year-old female at 14 weeks arriving to the emergency department in the setting of nausea and vomiting for the past approximate 24 hours. Patient reports that she tested positive for COVID last week but has subsequently had negative home tests. She follows with [facility] at [place] and has had an ultrasound confirming a single intrauterine . She has not been able to keep anything down since yesterday evening. She denies abdominal pain shortness of breath diarrhea. No past abdominal surgeries. Patient denies routine tobacco, ethanol, and illicits. She reports that she had a gradual onset headache. She says that her headache feels similar to prior episodes of headaches. She has not syncopized. She has not had any vaginal bleeding. She denies any recent falls. She reports that she had strep last week and is on penicillin. No persistent sore throat. Exam General: Well-appearing in no acute distress speaking in complete sentences. Head: Normocephalic, atraumatic. Eye: Extraocular eye movements intact. No conjunctival injection. No scleral icterus. Ear, nose, mouth, throat: Grossly normal inspection. Normal voice, handling secretions normally. Moist mucous membranes Neck: Trachea midline. No nuchal rigidity Cardiovascular: Well-perfused distal extremities. Regular rate and rhythm Respiratory: Nonlabored respiration. Clear lungs bilaterally. Gastrointestinal: Nondistended abdomen. Gravid uterus. Soft nontender. Musculoskeletal: No edema. Moving all 4 extremities spontaneously. Skin: Normal for age and race, grossly normal temperature and turgor. No acute rash. Neurologic: Alert and appropriate, no apparent acute deficits. Psychiatric: Mood and manner are appropriate. Grooming and personal hygiene are appropriate. Related Data Home Medications Medication Instructions Recorded Confirmed escitalopram oxalate 20 mg tablet mg 12/30/20 12/30/20 doxylamine 10 mg-pyridoxine (vit 1 tab PO BID PRN #10 tabs 02/05/23 B6) 10 mg tablet,delayed release (Diclegis) Previous Rx's Medication Instructions Recorded doxylamine 10 mg-pyridoxine (vit 1 tab PO BID PRN #10 tabs 02/05/23 B6) 10 mg tablet,delayed release (Diclegis) Allergies Allergy/AdvReac Type Severity Reaction Status Date / Time No Known Allergies Allergy Verified 02/05/23 23:30 General JUDITH: 3 PFSH All Active Problems (Updated 02/05/23 @ 23:41 by Rosas Flannery MD) Hyperemesis gravidarum (Acute) URI (upper respiratory infection) (Acute) Medical History (Updated 02/05/23 @ 23:41 by Rosas Flannery MD) Headache Scoliosis Family History Other Diabetes maternal Personal history of malignant neoplasm PGM-breast, maternal aunt with brain tumor Heart disease maternal Mental disorder PGM, 3 siblings Myocardial infarction Stroke maternal Asthma 3 siblings Idiopathic scoliosis PGF, brother Mother Headache Mental disorder anxiety/depression Asthma Father Mental disorder depresssion Idiopathic scoliosis Social History Smoking/Tobacco Use Status: Never Smoking risk assessment performed?: Yes Alcohol Intake: never Drug use: Never Do you feel safe at home: Yes Do you feel safe in your relationship?: Yes Additional Social history: unable to assess Female Reproductive History Menstrual control method: none History History 0 Para Hx # Term Pregnancies Multiple births Hx # Pregnancies Ectopic pregnancies AB induced Hx Number of Living Children AB spontaneous POCUS Exam (ED) Limited Pelvic Exam DATE OF EXAM: 02/05/23 TIME OF EXAM: 22:04 PROVIDER THAT PERFORMED THE STUDY: Rosas Flannery IS THIS A REPEAT EXAM DURING THIS ENCOUNTER: No Type of Exam: Pelvic Trans Abdominal Exam () REASON FOR EXAM: Other indication: VISUALIZED STRUCTURES: Uterus PERTINENT FINDINGS/IMPRESSION: Other impression: Reassuring heart rate 154 bpm. Exam Complete
[2023-02-05 21:33] VITALS: BP 108/52; PULSE 63; RESP 20; TEMP 36.5; O2SAT 97; O2SAT 98
[2023-02-05 21:36] VITALS: BP 108/52; PULSE 56
[2023-02-05 21:37] VITALS: BP 108/52; PULSE 63; RESP 20; TEMP 36.5; O2SAT 97
--- OUTSIDE RECORDS SUMMARY | 2023-02-05 21:37 | XMS_ITS | Continuity of Care Document ---
Author Name Unknown Organization [facility] Ambulatory Clinics Address [address] [place] [address] Encounter [facility] NBR [id number] Date(s): 01/16/23 - 01/16/23 [facility] Ambulatory [facility] [address] [place] [address]- [place] Encounter Diagnosis Encounter for care in first trimester of first (Discharge Diagnosis) - 01/16/23 Screening for STD (sexually transmitted disease)(Discharge Diagnosis) - 01/16/23 Pap smear for cervical cancer screening(Discharge Diagnosis) - 01/16/23 Discharge Disposition: Home or Self Care Attending Physician: Mayra Mathis APRN Allergies, Adverse Reactions, Alerts No Known Allergies Assessment and Plan Future Appointments Appointment Date:02/14/2023 08:30:00 AM Scheduled Provider:Adan Mak MD Location:[facility] Appointment Type:OB Follow Up Medications Varina-3 oral capsule 0 Refill(s) Start Date: 01/16/23 Status: Ordered ondansetron 4 mg oral tablet, disintegrating 4 mg = 1 tab, Oral, every 8 hr, PRN as needed for nausea/vomiting, # 20 tab, 1 Refill(s), Pharmacy:[id number], 163.83, cm, 12/12/22 13:06:00 EDT, Height, 63.3, kg, 12/12/22 13:17:00 EDT, Weight Dosing Start Date: 12/27/22 Status: Ordered Complete with DHA 0 Refill(s) Start Date: 12/12/22 Status: Ordered Problem List Condition Confirmation Course Effective Dates Status Health St atus Informant Constipation Confirmed Active Abdominal cramping Confirmed Active First trimester Confirmed Active Confirmed 11/02/22 Active Procedures Procedure Date Related Diagnosis Body Site Status [place] tooth 2014 Completed Results Most recent to oldest [Reference Range]: 1 Protein Urine Dipstick Trace (01/16/23 11:03 AM) Glucose Urine Dipstick Negative (01/16/23 11:03 AM) Urine Color Urine Dipstick Straw (01/16/23 11:03 AM) Urine Appearance Urine Dipstick Clear (01/16/23 11:03 AM) Vital Signs Most recent to oldest [Reference Range]: 1 Blood Pressure [90-140/60-90 mmHg] 108/7 2mmHg (01/16/23 11:03 AM) Mean Arterial Pressure, Cuff [70-110 mmH g] 84 mmHg (01/16/23 11:03 AM) Weight 65.7 kg (01/16/23 11:03 AM) Weight Measured (lbs) 144.844 lb (01/16/23 11:03 AM) Weight Dosing 65.700 kg (01/16/23 11:03 AM) [place] Body Weight Calculated 54.193 kg (01/16/23 11:03 AM) Height 162 cm (01/16/23 11:03 AM) Height/Length Measured (inches) 63.78 in ch (01/16/23 11:03 AM) BSA Measured 1.72 m2 (01/16/23 11:03 AM) Body Mass Index 25.03 kg/m2 (01/16/23 11:03 AM) Social History Social History Type Response Smoking Status Smoking tobacco use: Never tobacco user;Never entered on: 12/12/22 Sex Physician Outpatient Note * Mayra Mathis, SENIOR ACCOUNTS PAYABLE CLERK: PERFORM Event Display: Office Clinic Note Physician Authored Date: [id number] NITA RAMOS :1995 Age:27 years Sex:Female Visit Date:01/16/2023 IVON/EGA Gestational Age (EGA) and IVON? * Note: EGA calculated as of 01/16/2023 ?? IVON:??08/09/2023?EGA*:??10 weeks 5 days ?Type:??Authoritative?Method Date:??11/02/2022 ?Method:??Last Menstrual Period??(11/02/2022) ?Confirmation:??Confirmed ?Description:??-- ?Comments:??-- ?Entered by:??Mayra Del Toro Delfina, SENIOR ACCOUNTS PAYABLE CLERK on 12/12/2022? Other IVON Calculations for this : ?No additional IVON calculations have been recorded for this Chief Complaint new OB appt Nausea and emesis, fatigued History of Present Illness New OB Physical Exam Vitals & Measurements BP:??108/72?? HT:??162??cm?? WT:??65.7??kg?? [facility] General Physical Exam:?GENERAL?Alert and oriented, well nourished, no acute distress Reasonable historian.?EYES Pupils equal ? HEENT Normocephalic, grossly normal hearing, moist oral mucosa ? NECK?Supple, no thyroid enlargement, no lymphadenopathy?RESPIRATORY?Clear to auscultation, non-labored respiration ?CARDIAC?Normal rate, regular rhythm, no murmurs ?ABDOMEN?Soft, nontender..?EXTREMITIES?Grossly normal exam..?MUSCULOSKELETAL?Grossly normal strength bilaterally..?DERMATOLOGIC?Grossly normal exam..?NEUROLOGIC?Awake, alert, and oriented X4 ?BREAST EXAM?Nipples bilaterally appear normal. No worrisome masses or nipple discharge. Bilateral axillas are free of any worrisome lymphadenopathy..?? [facility] Pelvic Exam:?EXTERNAL GENITALIA?Labia majora and minora bilaterally are normal in appearance., Introitus is normal in external appearance..?VAGINA?Healthy rugated mucosa..?VAGINAL DISCHARGE?Thin, minimal, white discharge..?CERVIX?Healthy in appearance. Pap collected.?UTERUS?Small and normal in contours., Uterus is nontender.??Adnexal areas bilaterally are normal in size and are nontender..? Risk Factors No risk factors documented Assessment/Plan 1.??Encounter for care in first trimester of first ??Z34.01 Feeling well. No cramps or bleeding. Menstrual cycles were monthly and regular. Reviewed optional screenings (QS, Sequential/Integrated, cell free DNA, SMA, CF, and fragile X), and would like to draw [id number] with PN labs today.??BSUS consistent with LMP dating. 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 Will discuss further at mo. Ordered: ABO/Rh Echo, Blood, Routine, 01/16/23, Once, Lab Collect, Encounter for care in first trimester of first , Order for future visit ABSC Echo, Blood, Routine, 01/16/23, Once, Lab Collect, Encounter for care in first trimester of first , Order for future visit CBC w/ Diff, Blood, Routine, 01/16/23, Once, Lab Collect, Encounter for care in first trimester of first , Order for future visit HBsAg Screen LC, Blood, Routine, 01/16/23, Once, Lab Collect, Encounter for care in first trimester of first , Order for future visit HCV Antibody [place] to Quant PCR and Genotyping [id number] LC, Blood, Routine, 01/16/23, Once, Lab Collect, Encounter for care in first trimester of first , Order for future visit HIV Ag/Ab w/ Reflex to Conf LC, Blood, Routine, 01/16/23, Once, Lab Collect, Encounter for prenatalcare in first trimester of first , Order for future visit MaterniT 21 PLUS w/ESS and SCA Ref, Blood, Routine, 01/16/23, Once, Lab Collect, Encounter for care in first trimester of first , Order for future visit Rubella Antibodies, IgG LC, Blood, Routine, 01/16/23, Once, Lab Collect, Encounter for care in first trimester of first , Order for future visit T pallidum Screening [place] LC, Blood, Routine, 01/16/23, Once, Lab Collect, Encounter for care in first trimester of first , Order for future visit ?? 2.??Pap smear for cervical cancer screening??Z12.4 Last pap 2019 or 2020. Collected today. Ordered: Outside Lab Request, 01/16/23 11:50:00 EST, Stop date 01/16/23 11:50:00 EST, [facility]path PAP rfx to HPVwhen ASCUS + CT/GC, Pap smear for cervical cancer screening Screening for STD (sexually transmitted disease) ?? 3.??Screening for STD (sexually transmitted disease)??Z11.3 Routine screening. Ordered: Outside Lab Request, 01/16/23 11:50:00 EST, Stop date 01/16/23 11:50:00 EST, [facility]path PAP rfx to HPVwhen ASCUS + CT/GC, Pap smear for cervical cancer screening Screening for STD (sexually transmitted disease) ?? Cards Exam and Notes ?? Exams and Notes ?? Date:??01/16/23 EGA:??10w5d Weight (lbs kg):??*144... Fundal Height (cm):??11 ? Blood Pressure (mmHg):??108/72 ? Cervix Exam (Dil cm/Eff %/Sta -):0/--/--?? Labor S/S:??None Urine Glucose:?? Urine Protein:?? Next Visit:??+4 weeks from 01/16/2023 Baby A?FHR:??167 ? Movement:?Presentation:??-- ? Date:??01/07/23 EGA:??9w3d?? Weight (lbs kg):??-- Fundal Height (cm):??-- ? Blood Pressure (mmHg):??108/59 ? Cervix Exam (Dil cm/Eff %/Sta -):--/--/--?? Labor S/S:?? Urine Glucose:?? Urine Protein:?? Next Visit:? Date:??12/12/22 EGA:??5w5d?? Weight (lbs kg):??*139... Fundal Height (cm):??-- ? Blood Pressure (mmHg):??122/76 ? Cervix Exam (Dil cm/Eff %/Sta -):--/--/--?? Labor S/S:?? Urine Glucose:?? Urine Protein:?? Next Visit:? Date:??12/03/22 EGA:??4w3d?? Weight (lbs kg):??-- Fundal Height (cm):??-- ? Blood Pressure (mmHg):??116/72 ? Cervix Exam (Dil cm/Eff %/Sta -):--/--/--?? Labor S/S:?? Urine Glucose:?? Urine Protein:?? Next Visit:? Problem List/Past Medical History Ongoing Abdominal cramping Constipation First trimester Historical No qualifying data Procedure/Surgical History ???[place] tooth (2014) Medications Varina-3 oral capsule ondansetron 4 mg oral tablet, disintegrating, 4 mg= 1 tab, Oral, every 8 hr, PRN, 1 refills Complete with DHA Allergies No Known Allergies Social History Alcohol Past- Comments: none since Electronic Cigarette/Vaping Electronic Cigarette Use: Never. 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 Exercise Home/Environment Lives with Spouse. Living situation: Home/Independent. Sexual Sexually active: Yes. Substance Use Never Tobacco Never tobacco user Tobacco Use:. Never Smokeless Tobacco use:. Family History Healthy adult: Mother, Father, Sister and Brother. Other: Sister. PCM Transcribed Labs ABO/Rh Echo: O POS Electronically Signed on 01/16/23 12:14 PM Mayra Mathis APRN Patient Care team information Care Team Related Persons Name: EMILY RAMOS Address: [address] Name: EMILY RAMOS Address: [address] Name: REJI PRASAD Address: [place] [address] [place] [address] Name: REJI PRASAD Address: Home [address] [place] [address] Name: HOLLY PRASAD Address: Home [address] [place] [phone] [facility] Name: HOLLY PRASAD Address[place] [address] [place] [address]
--- OUTSIDE RECORDS SUMMARY | 2023-02-05 21:37 | XMS_ITS | Continuity of Care Document ---
Author Name Unknown Organization [facility] Address [address] [place] [address] Encounter LTTL_FL FIN NBR [id number] Date(s): 01/07/23 - 01/07/23 [facility] [address] [place] [address]- [place] Encounter Diagnosis Abdominal cramping(Discharge Diagnosis) - 01/07/23 First trimester (Discharge Diagnosis) - 01/07/23 Constipation(Discharge Diagnosis) - 01/07/23 Discharge Disposition: Home or Self Care Attending Physician: Duncan Jean MD Admitting Physician: Duncan Jean MD Allergies, Adverse Reactions, Alerts No Known Allergies Assessment and Plan Future Appointments Medications ondansetron 4 mg oral tablet, disintegrating 4 mg = 1 tab, Oral, every 8 hr, PRN as needed for nausea/vomiting, # 20 tab, 1 Refill(s), [facility]acy:[id number], 163.83, cm, 12/12/22 13:06:00 EDT, Height, 63.3, kg, 12/12/22 13:17:00 EDT, Weight Dosing Start Date: 12/27/22 Status: Ordered Complete with DHA 0 Refill(s) Start Date: 12/12/22 Status: Ordered Mental Status 01/07/23 Eye Opening Response Evan Spontaneous ly Best Verbal Response Evan Oriented Best Motor Response [place] Obeys comman ds Evan Coma Score 15 Problem List Condition Confirmation Course Effective Dates Status Health [facility] Informant Constipation Confirmed Active Abdominal cramping Confirmed Active First trimester Confirmed Active Confirmed 11/02/22 Active Procedures Procedure Date Related Diagnosis Body Site Status [place] tooth 2014 Completed Results Laboratory List Name Date ABO/Rh Echo 01/07/23 Beta hCG Quantitative 01/07/23 Most recent to oldest [Reference Range]: 1 ABO/Rh Echo O POS *Unknown* (01/07/23 10:32 AM) Beta hCG Qnt [<=5.0 mIntlUnit/mL] 100925 .0 mIntlUnit/mL 1 *HI* (01/07/23 10:32 AM) 1Interpretive Data: WEEKS POST LMP: APPROXIMATE HCG (mIU/mL) 3-4 Weeks 9-130 4-5 Weeks 75-2600 5-6 Weeks 850-20,800 6-7 Weeks 4,000-100,200 7-12 Weeks 11,500-289,000 12-16 Weeks 18,300-137,000 16-29 Weeks 1,400-53,000 29-41 Weeks 940-60,000 Vital Signs Most recent to oldest [Reference Range]: 1 Temperature Temporal Artery [36-38 Deg C ] 36.5 Deg C (01/07/23 10:15 AM) Peripheral Pulse Rate [60-100 bpm] 87 bp m (01/07/23 10:15 AM) Respiratory Rate [12-24 br/min] 18 br/mi n (01/07/23 10:15 AM) Blood Pressure [90-140/60-90 mmHg] 108/5 9mmHg (01/07/23 10:15 AM) Mean Arterial Pressure, Cuff [70-110 mmH g] 75 mmHg (01/07/23 10:15 AM) Weight Dosing 62.00 kg (01/07/23 10:24 AM) Weight Estimated 62.00 kg (01/07/23 10:15 AM) Height 162.000 cm (01/07/23 10:24 AM) Height/Length Estimated 162.000 cm (01/07/23 10:15 AM) Social History Social History Type Response Smoking Status Smoking tobacco use: Never tobacco user;Never entered on: 12/12/22 Sex Hospital Discharge Instructions Patient Education 01/07/2023 09:44:07 Abdominal Pain, Adult Abdominal Pain, Adult Pain in the abdomen (abdominal pain) can be caused by many things. Often, abdominal pain is not serious and it gets better with no treatment or by being treated at home. However, sometimes abdominal pain is serious. Your health care provider will ask questions about your medical history and do a physical exam to try to determine the cause of your abdominal pain. Follow these instructions at home: Medicines ??? Take gics-tbv-vsdjifi and prescription medicines only as told by your health care provider. ??? Do not take a laxative unless told by your health care provider. General instructions ??? Watch your condition for any changes. ??? Drink enough fluid to keep your urine pale yellow. ??? Keep all follow-up visits as told by your health care provider. This is important. Contact a health care provider if: ??? Your abdominal pain changes or gets worse. ??? You are not hungry or you lose weight without trying. ??? You are constipated or have diarrhea for more than 2???3 days. ??? You have pain when you urinate or have a bowel movement. ??? Your abdominal pain wakes you up at night. ??? Your pain gets worse with meals, after eating, or with certain foods. ??? You are vomiting and cannot keep anything down. ??? You have a fever. ??? You have blood in your urine. Get help right away if: ??? Your pain does not go away as soon as your health care provider told you to expect. ??? You cannot stop vomiting. ??? Your pain is only in areas of the abdomen, such as the right side or the left lower portion of the abdomen. Pain on the right side could be caused by appendicitis. ??? You have bloody or black stools, or stools that look like tar. ??? You have severe pain, cramping, or bloating in your abdomen. ??? You have signs of dehydration, such as: ??? Dark urine, very little urine, or no urine. ??? Cracked lips. ??? Dry mouth. ??? Sunken eyes. ??? Sleepiness. ??? Weakness. ??? You have trouble breathing or chest pain. Summary ??? Often, abdominal pain is not serious and it gets better with no treatment or by being treated at home. However, sometimes abdominal pain is serious. ??? Watch your condition for any changes. ??? Take jpde-xdz-sncxtmj and prescription medicines only as told by your health care provider. ??? Contact a health care provider if your abdominal pain changes or gets worse. ??? Get help right away if you have severe pain, cramping, or bloating in your abdomen. This information is not intended to replace advice given to you by your health care provider. Make sure you discuss any questions you have with your health care provider. Document Revised: 03/20/2020 Document Reviewed: 06/10/2019 [employer] Patient Education ?? 2022 [employer] 01/07/2023 09:44:03 First Trimester of First Trimester of The first trimester of starts on the first day of your last menstrual period until the end of week 12. This is months 1 through 3 of . A week after a sperm fertilizes an egg, the egg will implant into the wall of the uterus and begin to develop into a baby. By the end of 12 weeks, all the baby's organs will be formed and the baby will be 2???3 inches in size. Body changes during your first trimester Your body goes through many changes during . The changes vary and generally return to normal after your baby is born. Physical changes ??? You may gain or lose weight. ??? Your breasts may begin to grow larger and become tender. The tissue that surrounds your nipples(areola) may become darker. ??? Dark spots or blotches (chloasma or mask of ) may develop on your face. ??? You may have changes in your hair. These can include thickening or thinning of your hair or changes in texture. Health changes ??? You may feel nauseous, and you may vomit. ??? You may have heartburn. ??? You may develop headaches. ??? You may develop constipation. ??? Your gums may bleed and may be sensitive to brushing and flossing. Other changes ??? You may tire easily. ??? You may urinate more often. ??? Your menstrual periods will stop. ??? You may have a loss of appetite. ??? You may develop cravings for certain kinds of food. ??? You may have changes in your emotions from day to day. ??? You may have more vivid and strange dreams. Follow these instructions at home: Medicines ??? Follow your health care provider's instructions regarding medicine use. Specific medicines may be either safe or unsafe to take during . Do not take any medicines unless told to by your health care provider. ??? Take a vitamin that contains at least 600 micrograms (mcg) of folic acid. Eating and drinking ??? Eat a healthy diet that includes fresh fruits and vegetables, whole grains, good sources of protein such as meat, eggs, or tofu, and low-fat dairy products. ??? Avoid raw meat and unpasteurized juice, milk, and cheese. These carry germs that can harm you and your baby. ??? If you feel nauseous or you vomit: ??? Eat 4 or 5 small meals a day instead of 3 large meals. ??? Try eating a few soda crackers. ??? Drink liquids between meals instead of during meals. ??? You may need to take these actions to prevent or treat constipation: ??? Drink enough fluid to keep your urine pale yellow. ??? Eat foods that are high in fiber, such as beans, whole grains, and fresh fruits and vegetables. ??? Limit foods that are high in fat and processed sugars, such as fried or sweet foods. Activity ??? Exercise only as directed by your health care provider. Most people can continue their usual exercise routine during . Try to exercise for 30 minutes at least 5 days a week. ??? Stop exercising if you develop pain or cramping in the lower abdomen or lower back. ??? Avoid exercising if it is very hot or humid or if you are at high altitude. ??? Avoid heavy lifting. ??? If you choose to, you may have sex unless your health care provider tells you not to. Relieving pain and discomfort ??? Wear a good support bra to relieve breast tenderness. ??? Rest with your legs elevated if you have leg cramps or low back pain. ??? If you develop bulging veins (varicose veins) in your legs: ??? Wear support hose as told by your health care provider. ??? Elevate your feet for 15 minutes, 3???4 times a day. ??? Limit salt in your diet. Safety ??? Wear your seat belt at all times when driving or riding in a car. ??? Talk with your health care provider if someone is verbally or physically abusive to you. ??? Talk with your health care provider if you are feeling sad or have thoughts of hurting yourself. Lifestyle ??? Do not use hot tubs, steam rooms, or saunas. ??? Do not douche. Do not use tampons or scented sanitary pads. ??? Do not use herbal remedies, alcohol, illegal drugs, or medicines that are not approved by your health care provider. Chemicals in these products can harm your baby. ??? Do not use any products that contain nicotine or tobacco, such as cigarettes, e-cigarettes, andchewing tobacco. If you need help quitting, ask your health care provider. ??? Avoid cat litter boxes and soil used by cats. These carry germs that can cause defects inthe baby and possibly loss of the unborn baby (fetus) by miscarriage or stillbirth. General instructions ??? During routine visits in the first trimester, your health care provider will do a physical exam, perform necessary tests, and ask you how things are going. Keep all follow-up visits. This is important. ??? Ask for help if you have counseling or nutritional needs during . Your health care provider can offer advice or refer you to specialists for help with various needs. ??? Schedule a dentist appointment. At home, brush your teeth with a soft toothbrush. Floss gently. ??? Write down your questions. Take them to your visits. Where to find more information ??? [place] Association: americanpregnancy.org ??? [place] [employer]: acog.org/en/Womens%20Health/ ??? Office on Women's Health: womenshealth.gov/ Contact a health care provider if you have: ??? Dizziness. ??? A fever. ??? Mild pelvic cramps, pelvic pressure, or nagging pain in the abdominal area. ??? Nausea, vomiting, or diarrhea that lasts for 24 hours or longer. ??? A bad-smelling vaginal discharge. ??? Pain when you urinate. ??? Known exposure to a contagious illness, such as chickenpox, measles, Zika virus, HIV, or hepatitis. Get help right away if you have: ??? Spotting or bleeding from your vagina. ??? Severe abdominal cramping or pain. ??? Shortness of breath or chest pain. ??? Any kind of trauma, such as from a fall or a car crash. ??? New or increased pain, swelling, or redness in an arm or leg. Summary ??? The first trimester of starts on the first day of your last menstrual period until the end of week 12 (months 1 through 3). ??? Eating 4 or 5 small meals a day rather than 3 large meals may help to relieve nausea and vomiting. ??? Do not use any products that contain nicotine or tobacco, such as cigarettes, e-cigarettes, andchewing tobacco. If you need help quitting, ask your health care provider. ??? Keep all follow-up visits. This is important. This information is not intended to replace advice given to you by your health care provider. Make sure you discuss any questions you have with your health care provider. Document Revised: 07/08/2020 Document Reviewed: 05/14/2020 [employer] Patient Education ?? 2022 [employer]. Follow Up Care 01/07/2023 10:15:15 With:Mayra Mathis APRN Address: [address] [place] [id number] When:2 to 4 days Physician Emergency department Note * Kathi Krueger APRN: PERFORM Event Display: ED Note Physician Authored Date: [id number] NITA RAMOS :1995 Age:27 years Sex:Female Visit Date:01/07/2023 Basic Information Time Seen: Kathi Krueger APRN / 01/07/2023 10:17 Chief Complaint Pt arrives with complaints of abdominal cramping that has persisted since this morning. Pt states she is 9 weeks . History Of Present Illness: This is a one 27-year-old female??who reports she was in her usual state of health??when she developed??lower abdominal cramping??this morning. ??It has been intermittent.?? She does report that she has had??some constipation as well.?? Denies any urinary symptoms. ??She has had no vaginal discharge or bleeding. ??No fever.?? She has had some intermittent nausea and did see??Mayra Mathis APRN??from??[facility] and was prescribed some Zofran. ??She states she is able to keep fluids down.?? Her next appointment is on Bryan 4. Review of Systems: Constitutional:?No??fevers,?No??chills,?No??sweats Eye:?No??recent visual problems ENT:?No??ear pain,?No??nasal congestion,?No??sore throat Respiratory:?No??shortness of breath,?No??cough Cardiovascular:?No??Chest pain,?No??palpitations,?No??syncope Gastrointestinal:?Positive fornausea,?No??vomiting,?Positive for??constipation??and lower abdominal cramping. Genitourinary:?No??hematuria, dysuria or frequency Ziyad/Lymph:?No??bruising tendency,?No??swollen lymph glands Endocrine:?No??excessive thirst,??No??excessive hunger Musculoskeletal:??No??back pain,??No??neck pain,??No??joint pain,??No??muscle pain,??No??decreased range of motion Integumentary:?No??rash,?No??pruritus,?No??abrasions Neurologic: Alert & oriented X 4 Psychiatric:?Positive for??anxiety,?No??depression Physical Exam Vitals & Measurements T:??36.5?C ??(Temporal Artery)?? HR:??87??(Peripheral)?? RR:??18?? BP:??108/59?? SpO2:??99%?? HT:??162.000??cm?? WT:??62.00??kg??(Estimated)?? Pain Score:??10?? O2 Therapy:??Room air?? Tearful??female of stated age. ??Effie warm dry and well-perfused.?? Head is atraumatic??normal cephalic. Neck is supple no JVD Cardiovascular regular rate and rhythm??respirations are even and unlabored Her abdomen is soft??no guarding??no masses positive bowel sounds She moves all extremities??equally strength equal Skin with no rashes??lesions or bruises ?? Medical Decision Making: This is a 27-year-old 1 who comes in with intermittent??abdominal cramping.?? Her vital signs and physical exam are unremarkable.?? We will draw??type and screen and??serum hCG.?? She has hadno vaginal discharge.?? She is also complaining of some constipation??but is passing flatus and taking oral fluids with antiemetics as she has experienced some intermittent nausea.?? She is stable for discharge for outpatient follow-up??with [facility] on Monday??she was advised to return sooner for new or worsening symptoms Procedure No Qualifying Data Assessment/Plan 1.??Abdominal cramping??R10.9 2.??First trimester ??Z34.91 3.??Constipation??K59.00 Orders: ABO/Rh Echo, Blood, Stat, 01/07/23 10:17:00 EST, Once, Nurse collect Beta hCG Quantitative, Blood, Stat, 01/07/23 10:17:00 EST, Once, Nurse collect Patient Discharge Condition Stable Discharge Disposition Home Patient Education Abdominal Pain, Adult First Trimester of Follow Up With When Contact Information Mayra Mathis APRN Within 2 to 4 days [address] [place] [address] Additional Instructions: Medication Reconciliation Unchanged multivitamin, ( Complete with DHA) ?? ondansetron (ondansetron 4 mg oral tablet, disintegrating)1 tab Oral (given by mouth) every 8 hoursas needed as needed for nausea/vomiting. Refills: 1. Problem List/Past Medical History Ongoing Abdominal cramping Constipation First trimester Historical No qualifying data Procedure/Surgical History ???[place] tooth (2013) Allergies No Known Allergies Social History Alcohol Past- Comments: none since Electronic Cigarette/Vaping Electronic Cigarette Use: Never. 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 Exercise Home/Environment Lives with Spouse. Living situation: Home/Independent. Sexual Sexually active: Yes. Substance Use Never Tobacco Never tobacco user Tobacco Use:. Never Smokeless Tobacco use:. Family History Healthy adult: Mother, Father, Sister and Brother. Other: Sister. Electronically Signed on 01/07/23 10:46 AM Kathi Krueger APRN Emergency department Discharge instructions * Kathi Krueger APRN: PERFORM Event Display: ED Discharge Information Authored Date: [id number] NITA RAMOS :1995 Age:27 years Sex:Female Visit Date:01/07/2023 Discharge Instructions We would like to thank you for allowing us to assist you with your healthcare needs. The following includes patient education materials and information regarding your injury/illness. Diagnosis from Today's Visit Abdominal cramping First trimester Constipation Discharge Vitals Temperature??(Temporal Artery) 97.7 ??F (36.5 ??C) Heart Rate??(Peripheral) 87 Respiratory Rate?? 18 Blood Pressure?? 108/59?? Height?? 63.78 in (162.000 cm) Weight??(Estimated) 136.71 lb (62.00 kg) Allergies No Known Allergies What to Do Next Instructions from Your Care Team Please??encourage fluids drinking 6 to 8 glasses or more daily to stay well-hydrated Eat a well-balanced diet??high in fiber??to keep??bowels regular Can use rgir-yxc-hjsmlwd stool softeners??as directed Call Monday for follow-up with [facility] Return here sooner for new or worsening symptoms?? You Need to Schedule the Following Appointments Follow Up with??Mayra Mathis APRN When:??Within 2 to 4 days Where: [address] [place] [address] Upcoming Scheduled Appointments Monday 11:15 AM EST ?? You were treated today on an emergency basis; it may be haley to contact your primary care provider to notify them of your visit today. You may have been referred to your regular doctor or a specialist, please follow up as instructed. If your condition worsens or you can't get in to see the doctor, contact the Emergency Department. Medications What How Much When Why Instructions Next Dose Unchanged multivitamin, ( Complete with DHA) Unchanged ondansetron (ondansetron 4 mg oral tablet, disintegrating) 1 tab Oral (given by mouth) Every 8 hours as needed for as needed for nausea/vomiting Hyperemesis gravidarum Education Materials Abdominal Pain, Adult Pain in the abdomen (abdominal pain) can be caused by many things. Often, abdominal pain is not serious and it gets better with no treatment or by being treated at home. However, sometimes abdominal pain is serious. Your health care provider will ask questions about your medical history and do a physical exam to try to determine the cause of your abdominal pain. Follow these instructions at home: Medicines ? Take xkxj-xbz-cgnhlwu and prescription medicines only as told by your health care provider. ? Do not take a laxative unless told by your health care provider. General instructions ? Watch your condition for any changes. ? Drink enough fluid to keep your urine pale yellow. ? Keep all follow-up visits as told by your health care provider. This is important. Contact a health care provider if: ? Your abdominal pain changes or gets worse. ? You are not hungry or you lose weight without trying. ? You are constipated or have diarrhea for more than 2???3 days. ? You have pain when you urinate or have a bowel movement. ? Your abdominal pain wakes you up at night. ? Your pain gets worse with meals, after eating, or with certain foods. ? You are vomiting and cannot keep anything down. ? You have a fever. ? You have blood in your urine. Get help right away if: ? Your pain does not go away as soon as your health care provider told you to expect. ? You cannot stop vomiting. ? Your pain is only in areas of the abdomen, such as the right side or the left lower portion of the abdomen. Pain on the right side could be caused by appendicitis. ? You have bloody or black stools, or stools that look like tar. ? You have severe pain, cramping, or bloating in your abdomen. ? You have signs of dehydration, such as: ? Dark urine, very little urine, or no urine. ? Cracked lips. ? Dry mouth. ? Sunken eyes. ? Sleepiness. ? Weakness. ? You have trouble breathing or chest pain. Summary ? Often, abdominal pain is not serious and it gets better with no treatment or by being treated at home. However, sometimes abdominal pain is serious. ? Watch your condition for any changes. ? Take lqsg-non-gqazqhp and prescription medicines only as told by your health care provider. ? Contact a health care provider if your abdominal pain changes or gets worse. ? Get help right away if you have severe pain, cramping, or bloating in your abdomen. This information is not intended to replace advice given to you by your health care provider. Make sure you discuss any questions you have with your health care provider. Document Revised: 03/20/2020 Document Reviewed: 06/10/2019 [employer] Patient Education ?? 2022 [employer]. First Trimester of The first trimester of starts on the first day of your last menstrual period until the end of week 12. This is months 1 through 3 of . A week after a sperm fertilizes an egg, the egg will implant into the wall of the uterus and begin to develop into a baby. By the end of 12 weeks, all the baby's organs will be formed and the baby will be 2???3 inches in size. Body changes during your first trimester Your body goes through many changes during . The changes vary and generally return to normal after your baby is born. Physical changes ? You may gain or lose weight. ? Your breasts may begin to grow larger and become tender. The tissue that surrounds your nipples (areola) may become darker. ? Dark spots or blotches (chloasma or mask of ) may develop on your face. ? You may have changes in your hair. These can include thickening or thinning of your hair or changesin texture. Health changes ? You may feel nauseous, and you may vomit. ? You may have heartburn. ? You may develop headaches. ? You may develop constipation. ? Your gums may bleed and may be sensitive to brushing and flossing. Other changes ? You may tire easily. ? You may urinate more often. ? Your menstrual periods will stop. ? You may have a loss of appetite. ? You may develop cravings for certain kinds of food. ? You may have changes in your emotions from day to day. ? You may have more vivid and strange dreams. Follow these instructions at home: Medicines ? Follow your health care provider's instructions regarding medicine use. Specific medicines may be either safe or unsafe to take during . Do not take any medicines unless told to by your health care provider. ? Take a vitamin that contains at least 600 micrograms (mcg) of folic acid. Eating and drinking ? Eat a healthy diet that includes fresh fruits and vegetables, whole grains, good sources of proteinsuch as meat, eggs, or tofu, and low-fat dairy products. ? Avoid raw meat and unpasteurized juice, milk, and cheese. These carry germs that can harm you and your baby. ? If you feel nauseous or you vomit: ? Eat 4 or 5 small meals a day instead of 3 large meals. ? Try eating a few soda crackers. ? Drink liquids between meals instead of during meals. ? You may need to take these actions to prevent or treat constipation: ? Drink enough fluid to keep your urine pale yellow. ? Eat foods that are high in fiber, such as beans, whole grains, and fresh fruits and vegetables. ? Limit foods that are high in fat and processed sugars, such as fried or sweet foods. Activity ? Exercise only as directed by your health care provider. Most people can continue their usual exercise routine during . Try to exercise for 30 minutes at least 5 days a week. ? Stop exercising if you develop pain or cramping in the lower abdomen or lower back. ? Avoid exercising if it is very hot or humid or if you are at high altitude. ? Avoid heavy lifting. ? If you choose to, you may have sex unless your health care provider tells you not to. Relieving pain and discomfort ? Wear a good support bra to relieve breast tenderness. ? Rest with your legs elevated if you have leg cramps or low back pain. ? If you develop bulging veins (varicose veins) in your legs: ? Wear support hose as told by your health care provider. ? Elevate your feet for 15 minutes, 3???4 times a day. ? Limit salt in your diet. Safety ? Wear your seat belt at all times when driving or riding in a car. ? Talk with your health care provider if someone is verbally or physically abusive to you. ? Talk with your health care provider if you are feeling sad or have thoughts of hurting yourself. Lifestyle ? Do not use hot tubs, steam rooms, or saunas. ? Do not douche. Do not use tampons or scented sanitary pads. ? Do not use herbal remedies, alcohol, illegal drugs, or medicines that are not approved by your health care provider. Chemicals in these products can harm your baby. ? Do not use any products that contain nicotine or tobacco, such as cigarettes, e- cigarettes, and chewing tobacco. If you need help quitting, ask your health care provider. ? Avoid cat litter boxes and soil used by cats. These carry germs that can cause defects in thebaby and possibly loss of the unborn baby (fetus) by miscarriage or stillbirth. General instructions ? During routine visits in the first trimester, your health care provider will do a physicalexam, perform necessary tests, and ask you how things are going. Keep all follow-up visits. This isimportant. ? Ask for help if you have counseling or nutritional needs during . Your health care provider can offer advice or refer you to specialists for help with various needs. ? Schedule a dentist appointment. At home, brush your teeth with a soft toothbrush. Floss gently. ? Write down your questions. Take them to your visits. Where to find more information ? [place] Association: americanpregnancy.org ? [place] [employer]: acog.org/en/Womens%20Health/ ? Office on Women's Health: womenshealth.gov/ Contact a health care provider if you have: ? Dizziness. ? A fever. ? Mild pelvic cramps, pelvic pressure, or nagging pain in the abdominal area. ? Nausea, vomiting, or diarrhea that lasts for 24 hours or longer. ? A bad-smelling vaginal discharge. ? Pain when you urinate. ? Known exposure to a contagious illness, such as chickenpox, measles, Zika virus, HIV, or hepatitis. Get help right away if you have: ? Spotting or bleeding from your vagina. ? Severe abdominal cramping or pain. ? Shortness of breath or chest pain. ? Any kind of trauma, such as from a fall or a car crash. ? New or increased pain, swelling, or redness in an arm or leg. Summary ? The first trimester of starts on the first day of your last menstrual period until the end of week 12 (months 1 through 3). ? Eating 4 or 5 small meals a day rather than 3 large meals may help to relieve nausea and vomiting. ? Do not use any products that contain nicotine or tobacco, such as cigarettes, e- cigarettes, and chewing tobacco. If you need help quitting, ask your health care provider. ? Keep all follow-up visits. This is important. This information is not intended to replace advice given to you by your health care provider. Make sure you discuss any questions you have with your health care provider. Document Revised: 07/08/2020 Document Reviewed: 05/14/2020 Elsevier Patient Education ?? 2022 Elsevier Inc. Patient/Supervisor [place] Signature Patient Name:NITA RAMOS I have received this information and my questions have been answered. Patient/Supervisor [place] [place] Name: Patient/Supervisor [place] Signature: Relationship to Patient: Witness Name/Signature: Date: Electronically Signed on: 01/07/2023 10:45 ESTSigned by:[facility] Patient Care team information Care Team Personnel Name: Sherron St Position: Nurse Member Role: Registered Nurse Name: Kathi Krueger APRN Position: Physician Member Role: Nurse Practitioner Address: Address: [address] [place] [address] [place] Care Team Related Persons Name: EMILY RAMOS Address: Home [address] [place] [address] [place] Name: EMILY RAMOS Address: Home [address] [place], [address] [place] Name: REJI PRASAD Address: Home [address] [place] [address] [facility] Name: REJI PRASAD Address: Home [address] [place] [address] [facility] Name: HOLLY PRASAD Address: Home [address] [place] [phone] [facility] Name: HOLLY PRASAD Address: Home [address] [place] [id number] [facility]
--- OUTSIDE RECORDS SUMMARY | 2023-02-05 21:37 | XMS_ITS | Continuity of Care Document ---
Author Name Unknown Organization [facility] Address Unknown Care Team Providers Care Cork Grinder Name Role Phone No Local PCP, No Local PCP Primary Care Physicia n Unavailable Encounter Date(s): 08/12/21 - 08/13/21 [facility] [address] [place], [place] [address] Discharge Disposition: Home or Self Care Attending Physician: LAURYN FERNANDEZ MD Admitting Physician: LAURYN FERNANDEZ MD Allergies, Adverse Reactions, Alerts No Known Allergies Medications amoxicillin 500 mg oral capsule 500 mg = 1 cap(s), Oral, TID, X 3 day(s), # 9 cap(s), 0 Refill(s), Pharmacy: [facility], 162.5, cm, 08/12/21 21:03:00 EDT, Height/Length Dosing, 63.5, kg, 08/12/21 21:03:00 EDT, Weight Dosing Start Date: 08/13/21 Stop Date: 08/16/21 Status: Ordered amoxicillin 500 mg oral capsule 500 mg = 1 cap(s), Oral, TID, X 7 day(s), # 21 cap(s), 0 Refill(s), Pharmacy: [facility], 162.5, cm, 08/12/21 21:03:00 EDT, Height/Length Dosing, 63.5, kg, 08/12/21 21:03:00 EDT, Weight Dosing Start Date: 08/13/21 Stop Date: 08/20/21 Status: Ordered Mental Status 08/12/21 Orientation Assessment Oriented x 4 08/12/21 Level of Consciousness Alert Results Laboratory List Name Date Mononucleosis Screen (Monospot) 08/12/21 SARS-CoV-2 & Influenza A/B (FLU/COVID) Most recent to oldest [Reference Range]: 1 Coronavirus SARS-CoV-2 [Not Detected] No t Detected 1 *NA* (08/12/21 11:05 PM) [place] Scr Neg (08/12/21 11:05 PM) Influenza A [Not Detected] Not Detected *NA* (08/12/21 11:05 PM) Influenza B [Not Detected] Not Detected 2 *NA* (08/12/21 11:05 PM) 1Result Comment: EUA/IVD Coronavirus SARS CoV-2 PCR test performed on Maria Isabel Rand 1. SARS CoV-2 Not Detected indicates that RNA was not present in the sample provided above the limit of detection. However, it does not rule out COVID-19 and should not be used as the sole basis for treatment or patientmanagement decisions. The results of this test should be interpreted in combination with clinical observations, patient history, and epidemiological information. 2Result Comment: EUA/IVD Orders for Microbiology Reports Name Date Group A Strep Culture (C Strep A) 2 Rapid Strep A Test 08/12/21 Microbiology Reports TEST:Rapid Strep A Test STATUS:Auth (Verified) BODY SITE: SOURCE:Throat COLLECTED DATE/TIME:08/12/21 9:03 PM FINAL REPORT Negative for Streptococcus group A antigen TEST:Group A Strep Culture STATUS:Order in Progress BODY SITE: SOURCE:Throat COLLECTED DATE/TIME:08/12/21 9:03 PM PRELIMINARY REPORT No Beta Streptococci isolated to date Final report to follow Vital Signs Most recent to oldest [Reference Range]: 1 2 Temperature Oral [35.8-37.3 DegC] 36.7 D egC (08/12/21 9:03 PM) Peripheral Pulse Rate [60-100 bpm] 56 bp m *LOW* (08/13/21 1:07 AM) 54 bpm *LOW* (08/12/21 9:03 PM) Respiratory Rate [14-20 br/min] 18 br/mi n (08/13/21 1:07 AM) 20 br/min (08/12/21 9:03 PM) Blood Pressure 110/35mmHg (08/13/21 1:07 AM) 117/72mmHg (08/12/21 9:03 PM) Social History Social History Type Response Sex Female Hospital Discharge Instructions Patient Education 08/13/2021 00:36:16 [facility] Return to Work (A) (Custom) INSTRUCTIONS FOR RETURNING TO WORK/SCHOOL/ATHLETICS NITA RAMOS was seen at [facility] ED today and can return to work/ school/ athletics on: 08/15/21 This injury: was work related was not work related X Disability: NO DISABILITY PARTIAL DISABILITY From: Through: with the following limitations or restrictions: 1. Activities as tolerated (only) 2. No work responsibilities while/ if using pain medicines. 3. TOTAL DISABILITY From: Through: Follow-up Exam Has been recommended in: 1 week if needed With: PCP COMMENTS OR DIAGNOSIS (if applicable): After 24 hours of antibiotic you are no longer contagious culture results for the strep test will be available in 24 to 48 hours please call back for the results [phone] 08/13/2021 00:36:16 [facility] PHARYNGITIS/SORE THROAT (Custom) PHARYNGITIS/SORE THROAT Strep mono and COVID testing are negative today a strep culture has been sent to make sure that that is not the cause of your sore throat We will start you on amoxicillin tonight as soon as you get the results of the culture you will know whether or not you need to continue the amoxicillin or you can discontinue it. Take Tylenol and ibuprofen for discomfort encourage fluids EXPLANATION: This is a term used to describe an inflamed throat. It can be caused by a variety of organisms, some of which may require treatment with an antibiotic. The doctor may have taken a throat culture to help determine the cause of your infection. RECOMMENDATIONS: ??? If a throat culture has been taken, call back in 2 days for the results. ??? Take all medications as directed. ??? Tylenol or Ibuprofen is recommended for pain relief. ??? Warm salt water gargles, throat lozenges or sprays will help reduce soreness. ??? Bed rest if you have a fever. ??? Drink plenty of liquids. Be especially concerned about: Trouble breathing Difficulty swallowing Drooling Fever that lasts longer than 48 hours Increasing pain PLEASE BE SURE TO FOLLOW-UP INSTRUCTED. ANY CONCERN, PLEASE RETURN! MAKE SURE YOU: Understand these instructions. Watch your condition. Get help right away if you are not doing well or get worse. Care Team Care Team Personnel Name: No Local PCP No Local PCP, Med Service: NO LOCAL PCP Member Role: Primary Care Physician Care Team Related Persons Name: EMILY RAMOS Address: Home [address] [place], [phone]
--- OUTSIDE RECORDS SUMMARY | 2023-02-05 21:37 | XMS_ITS | Continuity of Care Document ---
Author Name Unknown Organization [facility] Ambulatory [facility] Address [address] [place] [address] Encounter [facility] FIN NBR [id number] Date(s): 02/01/23 - 02/01/23 [facility] [address] [place] [address]- [place] Encounter Diagnosis COVID-19 virus infection(Discharge Diagnosis) - 02/01/23 Discharge Disposition: Home Allergies, Adverse Reactions, Alerts No Known Allergies Assessment and Plan Future Appointments Appointment Date:02/14/2023 08:30:00 AM Scheduled Provider:Adan Mak MD Location:[facility] Appointment Type:OB Follow Up Medications [place]-3 oral capsule 0 Refill(s) Start Date: 01/16/23 Status: Ordered ondansetron 4 mg oral tablet, disintegrating 4 mg = 1 tab, Oral, every 8 hr, PRN as needed for nausea/vomiting, # 20 tab, 1 Refill(s), Pharmacy:[id number], 163.83, cm, 12/12/22 13:06:00 EDT, Height, 63.3, kg, 12/12/22 13:17:00 EDT, Weight Dosing Start Date: 12/27/22 Status: Ordered Complete with DHA 0 Refill(s) Start Date: 12/12/22 Status: Ordered Problem List Condition Confirmation Course Effective Dates Status Health St atus Informant Constipation Confirmed Active Abdominal cramping Confirmed Active First trimester Confirmed Active Confirmed 11/02/22 Active Procedures Procedure Date Related Diagnosis Body Site Status [place] tooth 2014 Completed Social History Social History Type Response Smoking Status Smoking tobacco use: Never tobacco user;Never entered on: 12/12/22 Sex Patient Care team information Care Team Related Persons Name: EMILY RAMOS Address: Home [address] Name: EMILY RAMOS Address: [address], [address] Name: REJI PRASAD Address: Home [address] Name: REJI PRASAD Address: Home [address] [place] [address] Name: HOLLY PRASAD Address: Home [address] [place] [phone] [facility] Name: HOLLY PRASAD Address: Home [address] [place] [id number] [facility]
--- OUTSIDE RECORDS SUMMARY | 2023-02-05 21:37 | XMS_ITS | Continuity of Care Document ---
Author Name Unknown Organization [facility] Address [address] [place] [id number] Encounter [facility] FIN NBR [id number] Date(s): 01/16/23 - 01/16/23 [facility] [address] [place] [address]- [place] Encounter Diagnosis Encounter for supervision of normal first , first trimester(Final) - Weeks of gestation of not specified(Final) - Discharge Disposition: Home or Self Care Attending Physician: Mayra Mathis APRN Admitting Physician: Mayra Mathis APRN Allergies, Adverse Reactions, Alerts No Known Allergies Assessment and Plan Future Appointments Appointment Date:02/14/2023 08:30:00 AM Scheduled Provider:Adan Mak MD Location:[facility] Appointment Type:OB Follow Up Diagnostic Tests Pending * T pallidum Screening [place] 01/16/23 * HBsAg Screen 01/16/23 * Rubella Antibodies, IgG LC 01/16/23 * HCV Antibody [place] to Quant PCR and Genotyping [id number] 01/16/23 * MaterniT 21 PLUS w/ESS and SCA Ref 01/16/23 * HIV Ag/Ab w/ Reflex to Conf 01/16/23 Medications [place]-3 oral capsule 0 Refill(s) Start Date: 01/16/23 Status: Ordered ondansetron 4 mg oral tablet, disintegrating 4 mg = 1 tab, Oral, every 8 hr, PRN as needed for nausea/vomiting, # 20 tab, 1 Refill(s), [id number], 163.83, cm, 12/12/22 13:06:00 EDT, Height, 63.3, kg, 12/12/22 13:17:00 EDT, Weight Dosing Start Date: 12/27/22 Status: Ordered Complete with DHA 0 Refill(s) Start Date: 12/12/22 Status: Ordered Problem List Condition Confirmation Course Effective Dates Status Health St atus Informant Constipation Confirmed Active Abdominal cramping Confirmed Active First trimester Confirmed Active Confirmed 11/02/22 Active Procedures Procedure Date Related Diagnosis Body Site Status [place] tooth 2013 Completed Results Laboratory List Name Date ABO/Rh Echo 01/16/23 ABSC Echo (Antibody Screen Echo) 01/16/23 CBC w/ Diff 01/16/23 Automated Diff 01/16/23 Most recent to oldest [Reference Range]: 1 WBC [4.8-10.8 K/mcL] 12.4 K/mcL *HI* (01/16/23 12:10 PM) RBC [4.20-5.40 Million/mcL] 4.23 Million /mcL (01/16/23 12:10 PM) Neutro Auto [42.2-75.2 %] 76.0 % *HI* (01/16/23 12:10 PM) Lymph Auto [20.5-51.1 %] 13.7 % *LOW* (01/16/23 12:10 PM) [place] Auto [1.7-9.3 %] 9.0 % (01/16/23 12:10 PM) Basophil Auto [0.0-0.8 %] 0.7 % (01/16/23 12:10 PM) Baso Absolute [0.0-0.2 K/mcL] 0.1 K/mcL (01/16/23 12:10 PM) MCV [81.0-99.0 fL] 89.4 fL (01/16/23 12:10 PM) MCHC [32.0-37.0 g/dL] 33.7 g/dL (01/16/23 12:10 PM) Lymph Absolute [1.2-3.4 K/mcL] 1.7 K/mcL (01/16/23 12:10 PM) Hct [37.0-47.0 %] 37.8 % (01/16/23 12:10 PM) [place] Absolute [0.1-0.6 K/mcL] 1.1 K/mcL *HI* (01/16/23 12:10 PM) MCH [27.0-31.0 pg] 30.1 pg (01/16/23 12:10 PM) Neutro Absolute [1.4-6.5 K/mcL] 9.5 K/mc L *HI* (01/16/23 12:10 PM) Hgb [12.0-16.0 g/dL] 12.8 g/dL (01/16/23 12:10 PM) MPV [7.4-10.4 fL] 8.1 fL (01/16/23 12:10 PM) Platelets [130-400 K/mcL] 284 K/mcL (01/16/23 12:10 PM) Eos Absolute [0.0-0.2 K/mcL] 0.1 K/mcL (01/16/23 12:10 PM) RDW-CV [11.5-14.5 %] 13.4 % (01/16/23 12:10 PM) ABO/Rh Echo O POS *Unknown* (01/16/23 12:10 PM) Eos, Auto [0.00-3.00 %] 0.60 % (01/16/23 12:10 PM) ABSC Echo Negative ABSC (01/16/23 12:10 PM) Orders for Microbiology Reports Name Date Urine Culture 01/16/23 Microbiology Reports TEST:Urine Culture STATUS:Order in Progress BODY SITE: SOURCE:Urine, Clean Catch COLLECTED DATE/TIME:01/16/23 11:45 AM PRELIMINARY REPORT <10,000 cfu/ml Mixed Gram Positive Chery No growth of uropathogens Social History Social History Type Response Smoking Status Smoking tobacco use: Never tobacco user;Never entered on: 12/12/22 Sex Patient Care team information Care Team Related Persons Name: EMILY RAMOS Address: [address] Name: EMILY RAMOS Address: [address] Name: REJI PRASAD Address: Home [address] Name: REJI PRASAD Address: [place] [address] [place] [address] [facility] Name: HOLLY PRASAD Address: [place] [address] [place] [phone] [facility] Name: HOLLY PRASAD Address: [place] [address] [place], [place] [address] [facility]
--- OUTSIDE RECORDS SUMMARY | 2023-02-05 21:37 | XMS_ITS | Continuity of Care Document ---
Author Name Unknown Organization [facility] Ambulatory Clinics Address [address] [place] [address] Encounter [facility] FIN NBR [id number] Date(s): 12/03/22 - 12/03/22 [facility] Amb[facility] [address] [place] [address]- [place] Encounter Diagnosis test performed, confirmed(Discharge Diagnosis) - 12/03/22 (Discharge Diagnosis) - 12/03/22 Discharge Disposition: Home or Self Care Attending Physician: PEG Hopkins Admitting Physician: PEG Hopkins Allergies, Adverse Reactions, Alerts No Known Allergies Functional Status 12/03/22 Other exposure to Infectious Disease Non e Medications No Known Medications Vital Signs Most recent to oldest [Reference Range]: 1 Temperature Tympanic [36.6-37.9 Deg C] 3 6.5 Deg C *LOW* (12/03/22 2:55 PM) Peripheral Pulse Rate [60-100 bpm] 72 bp m (12/03/22 2:55 PM) Respiratory Rate [12-24 br/min] 16 br/mi n (12/03/22 2:55 PM) Blood Pressure [90-140/60-90 mmHg] 116/7 2mmHg (12/03/22 2:55 PM) Mean Arterial Pressure, Cuff [65-140 mmH g] 87 mmHg (12/03/22 2:55 PM) Hospital Discharge Instructions Patient Education 12/03/2022 14:32:26 First Trimester of , Rcll-qc-Jhzo First Trimester of The first trimester of starts on the first day of your last menstrual period until the end of week 12. This is also called months 1 through 3 of . Body changes during your first trimester Your body goes through many changes during . The changes usually return to normal after your baby is born. Physical changes ??? You may gain or lose weight. ??? Your breasts may grow larger and hurt. The area around your nipples may get darker. ??? Dark spots or blotches may develop on your face. ??? You may have changes in your hair. Health changes ??? You may feel like you might vomit (nauseous), and you may vomit. ??? You may have heartburn. ??? You may have headaches. ??? You may have trouble pooping (constipation). ??? Your gums may bleed. Other changes ??? You may get tired easily. ??? You may pee (urinate) more often. ??? Your menstrual periods will stop. ??? You may not feel hungry. ??? You may want to eat certain kinds of food. ??? You may have changes in your emotions from day to day. ??? You may have more dreams. Follow these instructions at home: Medicines ??? Take bkwi-cmz-pbfucgx and prescription medicines only as told by your doctor. Some medicines are not safe during . ??? Take a vitamin that contains at least 600 micrograms (mcg) of folic acid. Eating and drinking ??? Eat healthy meals that include: ??? Fresh fruits and vegetables. ??? Whole grains. ??? Good sources of protein, such as meat, eggs, or tofu. ??? Low-fat dairy products. ??? Avoid raw meat and unpasteurized juice, milk, and cheese. ??? If you feel like you may vomit, or you vomit: ??? Eat 4 or 5 small meals a day instead of 3 large meals. ??? Try eating a few soda crackers. ??? Drink liquids between meals instead of during meals. ??? You may need to take these actions to prevent or treat trouble pooping: ??? Drink enough fluids to keep your pee (urine) pale yellow. ??? Eat foods that are high in fiber. These include beans, whole grains, and fresh fruits and vegetables. ??? Limit foods that are high in fat and sugar. These include fried or sweet foods. Activity ??? Exercise only as told by your doctor. Most people can do their usual exercise routine during . ??? Stop exercising if you have cramps or pain in your lower belly (abdomen) or low back. ??? Do not exercise if it is too hot or too humid, or if you are in a place of great height (high altitude). ??? Avoid heavy lifting. ??? If you choose to, you may have sex unless your doctor tells you not to. Relieving pain and discomfort ??? Wear a good support bra if your breasts are sore. ??? Rest with your legs raised (elevated) if you have leg cramps or low back pain. ??? If you have bulging veins (varicose veins) in your legs: ??? Wear support hose as told by your doctor. ??? Raise your feet for 15 minutes, 3???4 times a day. ??? Limit salt in your food. Safety ??? Wear your seat belt at all times when you are in a car. ??? Talk with your doctor if someone is hurting you or yelling at you. ??? Talk with your doctor if you are feeling sad or have thoughts of hurting yourself. Lifestyle ??? Do not use hot tubs, steam rooms, or saunas. ??? Do not douche. Do not use tampons or scented sanitary pads. ??? Do not use herbal medicines, illegal drugs, or medicines that are not approved by your doctor. Do not drink alcohol. ??? Do not smoke or use any products that contain nicotine or tobacco. If you need help quitting, ask your doctor. ??? Avoid cat litter boxes and soil that is used by cats. These carry germs that can cause harm to the baby and can cause a loss of your baby by miscarriage or stillbirth. General instructions ??? Keep all follow-up visits. This is important. ??? Ask for help if you need counseling or if you need help with nutrition. Your doctor can give you advice or tell you where to go for help. ??? Visit your dentist. At home, brush your teeth with a soft toothbrush. Floss gently. ??? Write down your questions. Take them to your visits. Where to find more information ??? [place] [employer]: americanpregnancy.org ??? [place] [employer]: www.acog.org ??? Office on Women's Health: womenshealth.gov/ Contact a doctor if: ??? You are dizzy. ??? You have a fever. ??? You have mild cramps or pressure in your lower belly. ??? You have a nagging pain in your belly area. ??? You continue to feel like you may vomit, you vomit, or you have watery poop (diarrhea) for 24 hours or longer. ??? You have a bad-smelling fluid coming from your vagina. ??? You have pain when you pee. ??? You are exposed to a disease that spreads from person to person, such as chickenpox, measles, Zika virus, HIV, or hepatitis. Get help right away if: ??? You have spotting or bleeding from your vagina. ??? You have very bad belly cramping or pain. ??? You have shortness of breath or chest pain. ??? You have any kind of injury, such as from a fall or a car crash. ??? You have new or increased pain, swelling, or redness in an arm or leg. Summary ??? The first trimester of starts on the first day of your last menstrual period until the end of week 12 (months 1 through 3). ??? Eat 4 or 5 small meals a day instead of 3 large meals. ??? Do not smoke or use any products that contain nicotine or tobacco. If you need help quitting, ask your doctor. ??? Keep all follow-up visits. This information is not intended to replace advice given to you by your health care provider. Make sure you discuss any questions you have with your health care provider. Document Revised: 07/08/2020 Document Reviewed: 05/14/2020 Elsevier Patient Education ?? 2022 [employer] Physician Outpatient Note * PEG Hopkins: PERFORM Event Display: Office Clinic Note Physician Authored Date: [id number] NITA RAMOS :1995 Age:27 years Sex:Female Visit Date:12/03/2022 Chief Complaint test. States cramping History of Present Illness Patient presents requesting test. ??Positive home test.?? Last menstrual cycle was??November 02.?? She is not past due.?? She notes some mild cramping but no pain. ??No vaginal bleeding.?? Denies??breast tenderness but does note some nipple sensitivity.?? She has been trying tobecome .?? Denies any current medications other than occasional Tylenol. ??Denies tobacco use. ??Only occasional alcohol use.?? Has not started?? vitamins.?? She denies any abdominal pain. ??No back pain.?? No dysuria urgency or frequency. Physical Exam Vitals & Measurements T:??36.5?C ??(Tympanic)?? HR:??72??(Peripheral)?? RR:??16?? BP:??116/72?? SpO2:??100%?? Well-appearing no acute distress abdominal exam is soft nontender. ??No palpable masses. ??No CVA tenderness. Assessment/Plan 1.?Z34.90 test positive. ??Reviewed first trimester .?? Including starting folic acid-containing vitamins. ??Contact women's health services to establish care. ??Avoid alcohol, tobacco.?? Check with??[facility] for??any medications. ??May take Tylenol.?? Reviewed risks of miscarriage.?? Recheck for any vaginal bleeding, abdominal pain. ??Patient agreeable.?? 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 test performed, confirmed??Z32.01 Patient Instructions Call [facility] women's services to establish care.?? Follow-up as needed. Patient Education First Trimester of , Cwne-uk-Wivg Problem List/Past Medical History Ongoing No qualifying data Historical No qualifying data Medications No active medications Allergies No Known Allergies Electronically Signed on 12/03/22 03:49 PM PEG Hopkins Outpatient Summary note * PEG Hopkins: PERFORM Event Display: Ambulatory Patient Summary Authored Date: [id number] NITA RAMOS :1995 Age:27 years Sex:Female Visit Date:12/03/2022 Ambulatory Visit Instructions We would like to thank you for allowing us to assist you with your healthcare needs. The following includes patient education materials and information regarding your injury/illness. Your Next Steps Instructions From Your Care Team Call [facility] women's services to establish care.?? Follow-up as needed. Your Summary Your Diagnosis test performed, confirmed Your Care Team Admitting Physician - PEG Hopkins Attending Physician - PEG Hopkins Discharge Vitals Temperature??(Tympanic) 97.7 ??F (36.5 ??C) Heart Rate??(Peripheral) 72 Respiratory Rate?? 16 Blood Pressure?? 116/72?? Allergies No Known Allergies Education Materials First Trimester of The first trimester of starts on the first day of your last menstrual period until the end of week 12. This is also called months 1 through 3 of . Body changes during your first trimester Your body goes through many changes during . The changes usually return to normal after your baby is born. Physical changes ? You may gain or lose weight. ? Your breasts may grow larger and hurt. The area around your nipples may get darker. ? Dark spots or blotches may develop on your face. ? You may have changes in your hair. Health changes ? You may feel like you might vomit (nauseous), and you may vomit. ? You may have heartburn. ? You may have headaches. ? You may have trouble pooping (constipation). ? Your gums may bleed. Other changes ? You may get tired easily. ? You may pee (urinate) more often. ? Your menstrual periods will stop. ? You may not feel hungry. ? You may want to eat certain kinds of food. ? You may have changes in your emotions from day to day. ? You may have more dreams. Follow these instructions at home: Medicines ? Take kuxg-xxc-undzdoz and prescription medicines only as told by your doctor. Some medicines are not safe during . ? Take a vitamin that contains at least 600 micrograms (mcg) of folic acid. Eating and drinking ? Eat healthy meals that include: ? Fresh fruits and vegetables. ? Whole grains. ? Good sources of protein, such as meat, eggs, or tofu. ? Low-fat dairy products. ? Avoid raw meat and unpasteurized juice, milk, and cheese. ? If you feel like you may vomit, or you vomit: ? Eat 4 or 5 small meals a day instead of 3 large meals. ? Try eating a few soda crackers. ? Drink liquids between meals instead of during meals. ? You may need to take these actions to prevent or treat trouble pooping: ? Drink enough fluids to keep your pee (urine) pale yellow. ? Eat foods that are high in fiber. These include beans, whole grains, and fresh fruits and vegetables. ? Limit foods that are high in fat and sugar. These include fried or sweet foods. Activity ? Exercise only as told by your doctor. Most people can do their usual exercise routine during . ? Stop exercising if you have cramps or pain in your lower belly (abdomen) or low back. ? Do not exercise if it is too hot or too humid, or if you are in a place of great height (high altitude). ? Avoid heavy lifting. ? If you choose to, you may have sex unless your doctor tells you not to. Relieving pain and discomfort ? Wear a good support bra if your breasts are sore. ? Rest with your legs raised (elevated) if you have leg cramps or low back pain. ? If you have bulging veins (varicose veins) in your legs: ? Wear support hose as told by your doctor. ? Raise your feet for 15 minutes, 3???4 times a day. ? Limit salt in your food. Safety ? Wear your seat belt at all times when you are in a car. ? Talk with your doctor if someone is hurting you or yelling at you. ? Talk with your doctor if you are feeling sad or have thoughts of hurting yourself. Lifestyle ? Do not use hot tubs, steam rooms, or saunas. ? Do not douche. Do not use tampons or scented sanitary pads. ? Do not use herbal medicines, illegal drugs, or medicines that are not approved by your doctor. Do not drink alcohol. ? Do not smoke or use any products that contain nicotine or tobacco. If you need help quitting, ask your doctor. ? Avoid cat litter boxes and soil that is used by cats. These carry germs that can cause harm to the baby and can cause a loss of your baby by miscarriage or stillbirth. General instructions ? Keep all follow-up visits. This is important. ? Ask for help if you need counseling or if you need help with nutrition. Your doctor can give you advice or tell you where to go for help. ? Visit your dentist. At home, brush your teeth with a soft toothbrush. Floss gently. ? Write down your questions. Take them to your visits. Where to find more information ? [place] [employer]: americanpregnancy.org ? [place] [employer]: www.acog.org ? Office on Women's Health: womenshealth.gov/ Contact a doctor if: ? You are dizzy. ? You have a fever. ? You have mild cramps or pressure in your lower belly. ? You have a nagging pain in your belly area. ? You continue to feel like you may vomit, you vomit, or you have watery poop (diarrhea) for 24 hoursor longer. ? You have a bad-smelling fluid coming from your vagina. ? You have pain when you pee. ? You are exposed to a disease that spreads from person to person, such as chickenpox, measles, Zika virus, HIV, or hepatitis. Get help right away if: ? You have spotting or bleeding from your vagina. ? You have very bad belly cramping or pain. ? You have shortness of breath or chest pain. ? You have any kind of injury, such as from a fall or a car crash. ? You have new or increased pain, swelling, or redness in an arm or leg. Summary ? The first trimester of starts on the first day of your last menstrual period until the end of week 12 (months 1 through 3). ? Eat 4 or 5 small meals a day instead of 3 large meals. ? Do not smoke or use any products that contain nicotine or tobacco. If you need help quitting, ask your doctor. ? Keep all follow-up visits. This information is not intended to replace advice given to you by your health care provider. Make sure you discuss any questions you have with your health care provider. Document Revised: 07/08/2020 Document Reviewed: 05/14/2020 Elsevier Patient Education ?? 2022 [employer] Electronically Signed on: 12/03/2022 15:32 EDTSigned by:BT Patient Care team information Care Team Related Persons Name: EMILY RAMOS Address: Home [address] [place] [address] Name: REJI PRASAD Address: Home [address] Name: HOLLY PRASAD Address: Home [address]
--- OUTSIDE RECORDS SUMMARY | 2023-02-05 21:37 | XMS_ITS | Continuity of Care Document ---
Author Name Unknown Organization [facility] Ambulatory Clinics Address [address] [place] [address] Encounter [facility] NBR [id number] Date(s): 12/12/22 - 12/12/22 [facility] Ambulatory [facility] [address] [place] [address]- [place] Discharge Disposition: Home or Self Care Attending Physician: Mayra Mathis APRN Allergies, Adverse Reactions, Alerts No Known Allergies Assessment and Plan Future Appointments Medications Complete with DHA 0 Refill(s) Start Date: 12/12/22 Status: Ordered Problem List Condition Confirmation Course Effective Dates Status Health St [facility] Informant Confirmed 11/02/22 Active Procedures Procedure Date Related Diagnosis Body Site Status [place] tooth 2014 Completed Vital Signs Most recent to oldest [Reference Range]: 1 Blood Pressure [90-140/60-90 mmHg] 122/7 6mmHg (12/12/22 1:06 PM) Mean Arterial Pressure, Cuff [65-140 mmH g] 91 mmHg (12/12/22 1:06 PM) Weight 63.3 kg (12/12/22 1:06 PM) Weight Measured (lbs) 139.552 lb (12/12/22 1:06 PM) Weight Dosing 63.300 kg (12/12/22 1:06 PM) [place] Body Weight Calculated 55.85 kg (12/12/22 1:06 PM) Height 163.83 cm (12/12/22 1:06 PM) Height/Length Measured (inches) 64.5 inc h (12/12/22 1:06 PM) BSA Measured 1.7 m2 (12/12/22 1:06 PM) Body Mass Index 23.58 kg/m2 (12/12/22 1:06 PM) Social History Social History Type Response Smoking Status Smoking tobacco use: Never tobacco user;Never entered on: 12/12/22 Sex Patient Care team information Care Team Related Persons Name: EMILY RAMOS Address: [address] Name: REJI PRASAD Address: Home [address] Name: HOLLY PRASAD Address: Home [address]
[2023-02-05] MEDS: DEXTROSE 5%-0.9% SALINE 1,000 ML 1000 ML IV (22:13)
[2023-02-05] MEDS: Ondansetron 4 MG/2 ML VIAL IVP ×2 (22:14→23:16)
[2023-02-05 22:34] LABS: Abs Immature Grans 0.02 10^3/uL (0.0-0.06); Absolute Basophil Count 0.04 10^3/uL (0.0-0.2); Absolute Eosinophil Count 0.04 10^3/uL (0.0-0.7); Absolute Lymphocyte Count 1.54 10^3/uL (1.2-3.4); Absolute Monocyte Count 0.59 10^3/uL (0.1-0.8); Absolute Neutrophil Count 6.47 10^3/uL (1.2-6.7); Basophils % 0.5; Eosinophils % 0.5; HCT 38.9 % (36.0-46.0); HGB 13.3 g/dL (11.2-15.7); Immature Grans % 0.2; Lymphocytes % 17.7; MCH 29.9 pg (27.0-33.0); MCHC 34.2 % (32.0-36.0); MCV 87 fL (80-95); Monocytes % 6.8; Neutrophils % 74.3; Platelet Count 297 10^3/uL (130-400); RBC 4.45 10^6/uL (3.93-5.22); RDW-SD 39.2 fL
[2023-02-05 22:44] LABS: Anion Gap 10.4 mmol/L (3-11); BUN 5 mg/dL (7-18); CO2 25.6 mmol/L (21.0-32.0); CREATININE 0.6 mg/dL (0.55-1.02); Calcium 9.2 mg/dL (8.5-10.1); Chloride 103 mmol/L (98-107); Estimated GFR 127.67 (mL/min/1.73m2); Glucose 85 mg/dL (74-106); Potassium 3.1 mmol/L (3.5-5.1); Sodium 139 mmol/L (136-145)
[2023-02-05] MEDS: ACETAMINOPHEN 1,000 MG/100 ML BTL 400 MG IVPB (23:04)
[2023-02-05] MEDS: Potassium Chloride 20 MEQ TABCR 40 MEQ PO (23:17)
[2023-02-05 23:18] LABS: Bilirubin Negative (Negative); Blood Negative (Negative); Clarity Clear (Clear); Glucose 500 mg/dL (Negative); Ketones 40 mg/dL (Negative); Leukocyte Esterase Negative (Negative); Nitrite Negative (Negative); Specific Gravity 1.015 (1.005-1.025); Urobilinogen 0.2 mg/dL (Up to 0.2)
[2023-02-05 23:44] LABS: COVID-19 PCR Negative (Negative); Influenza A PCR Positive (Negative); Influenza B PCR Negative (Negative); RSV PCR Negative (Negative)
[2023-02-05 23:47] LABS: Source Nasopharynx
[2023-02-06 00:20] VITALS: BP 110/60; PULSE 60; RESP 16; O2SAT 98
== END 2023-02-06 00:21 | disposition home or self-care (01) ==
PROVIDERS: Emergency Provider Emergency Medicine
DX: O21.0 Mild hyperemesis gravidarum (principal); O26.893 Other specified pregnancy related conditions, third trimester; J10.1 Influenza due to other identified influenza virus with other respiratory manifestations; Z3A.14 14 weeks gestation of pregnancy
CPT/HCPCS: 76857; 80048; 87637; 96374; 96375; 99284; 81003; 85025; 99283; J0131; J2405; J7042

== ENCOUNTER 2024-04-12 00:28 | Emergency (ER) | payer BC, SELFPAY ==
[2024-04-12 00:31] VITALS: BP 122/56; PULSE 96; RESP 16; TEMP 37.3; O2SAT 98
--- NOTE | 2024-04-12 00:34 | ED.GENADUL_ITS ---
Discharge Plan Disposition Patient Disposition: Home Condition: Good Discharge Details Clinical Impression: Otitis media of left ear Primary Care Provider: Talat Guthrie ED Provider: Gianni Mclean Meds and New Rx's Prescriptions: New amoxicillin-pot clavulanate 875-125 mg tablet 1 tab PO BID Qty: 10 0RF ibuprofen 600 mg tablet 600 mg PO TID PRN (Reason: pain) Qty: 10 0RF Continued multivitamin [Daily Multi-Vitamin] Tablet 1 tab PO DAILY Discharge Instructions Instructions: Ear Infection ED Additional Instructions: You were seen for persistent cold symptoms with worsening ear pain. You have evidence of an infection with the left ear and has been started on antibiotics. Prescription for ibuprofen has also been sent to help with your pain. Both prescriptions are safe in breast-feeding. Follow-up with primary care next week if you are not improving. Return to ED for any neurologic change, severe worsening pain, other concerns. HPI General Mode of arrival: ambulatory . Date/Time Provider Initiated Documentation: 04/12/24 00:34 . Limitations to Documentation: no limitations . Information obtained by: patient and RN notes reviewed . HPI Narrative: Patient presents to ED with complaint of sore throat and ear pain. Patient reporting that she has had URI type symptoms with cough, congestion, sore throat, intermittent ear pain for almost 2 weeks now. She was seen at urgent care about a week ago. A rapid strep was negative. Culture was reported negative to her yesterday. Continues to have throat pain and has developed worsening ear pain left greater than right. Her cough is more intermittent at this point. There is no chest pain or shortness of breath. She has been taking cough drops and acetaminophen at home. Left ear becoming more painful overnight. Related Data Home Medications ?Medication ?Instructions ?Recorded ?Confirmed amoxicillin 875 mg-potassium 1 tab PO BID #10 tabs 04/12/24 clavulanate 125 mg tablet ibuprofen 600 mg tablet 600 mg PO TID PRN pain #10 tabs 04/12/24 multivitamin (Daily Multi-Vitamin 1 tab PO DAILY 04/12/24 04/12/24 tablet) Previous Rx's ?Medication ?Instructions ?Recorded amoxicillin 875 mg-potassium 1 tab PO BID #10 tabs 04/12/24 clavulanate 125 mg tablet ibuprofen 600 mg tablet 600 mg PO TID PRN pain #10 tabs 04/12/24 Allergies Allergy/AdvReac Type Severity Reaction Status Date / Time No Known Allergies Allergy Verified 04/12/24 00:33 General Stated Complaint: Sorethroat JUDITH: 4 Exam Narrative Exam Narrative: Const: WDWN female in NAD. VS per triage. HEENT: NC/AT. Normal facial exam. Right ear and TM normal. Left TM erythematous and opacified. Oropharynx with no erythema, exudate, ulcers, swelling. Neck: Supple. Trachea midline. Lungs: Normal respiratory effort. Lungs are clear. Cor: RRR without murmur. Good radial pulses. Neuro: A+O x 3. Normal speech, mentation, gait. Cranial nerves II - XII grossly intact. No gross motor or sensory deficit. Course Vital Signs Vital signs: Vital Signs Temperature 99.1 F 04/12/24 00:31 Pulse 96 H 04/12/24 00:31 Respiratory Rate 16 04/12/24 00:31 Blood Pressure 122/56 L 04/12/24 00:31 Pulse Oximetry 98 04/12/24 00:31 Temperature 99.1 F 04/12/24 00:31 Temperature Source Temporal Artery Scan 04/12/24 00:31 Pulse 96 H 04/12/24 00:31 Respiratory Rate 16 04/12/24 00:31 Blood Pressure 122/56 L 04/12/24 00:31 Blood Pressure Position Sitting 04/12/24 00:31 Pulse Oximetry 98 04/12/24 00:31 Oxygen Delivery Method Room Air 04/12/24 00:31 Oxygen Flow Rate 0 04/12/24 00:31 Pain Level 10 04/12/24 00:31 Medical Decision Making Patient presenting to ED with prolonged URI symptoms now worsening left ear pain. She does have erythema and opacification of the left TM. She will be started on antibiotic for treatment of otitis media. She is breast-feeding but Augmentin and ibuprofen are safe in . Patient may also continue acetaminophen. She should follow-up with primary care next week if not improving. Return precautions provided. PFSH All Active Problems Otitis media of left ear (Acute) URI (upper respiratory infection) (Acute) Medical History Headache Scoliosis Family History Other Diabetes maternal Personal history of malignant neoplasm PGM-breast, maternal aunt with brain tumor Heart disease maternal Mental disorder PGM, 3 siblings Myocardial infarction Stroke maternal Asthma 3 siblings Idiopathic scoliosis PGF, brother Mother Headache Mental disorder anxiety/depression Asthma Father Mental disorder depresssion Idiopathic scoliosis Social History Smoking/Tobacco Use Status: Never Smoking risk assessment performed?: Yes Alcohol Intake: never Drug use: Never Substance use type: does not use Do you feel safe at home: Yes Do you feel safe in your relationship?: Yes Female Reproductive History Menstrual control method: none History History 0 Para Hx # Term Pregnancies Multiple births Hx # Pregnancies Ectopic pregnancies AB induced Hx Number of Living Children AB spontaneous
[2024-04-12 00:35] VITALS: BP 122/56; PULSE 96; RESP 16; TEMP 37.3; O2SAT 98
[2024-04-12] MEDS: Amoxicillin 875/Clav. 125 TAB PO (00:48)
[2024-04-12] MEDS: Ibuprofen 600 MG TAB PO (00:48)
--- NOTE | 2024-04-12 09:25 | NUR.NOTE ---
called rx to [facility] Nursing Note:
== END 2024-04-12 00:51 | disposition home or self-care (01) ==
PROVIDERS: Emergency Provider Emergency Medicine; PCP Physician Assistant
DX: H66.92 Otitis media, unspecified, left ear (principal); R07.0 Pain in throat
CPT/HCPCS: 99283